=== PATIENT | female | born 1945 | race Caucasian/White ===

== ENCOUNTER 2016-06-10 20:28 | Inpatient (IN) ==
--- NOTE | 2016-06-10 20:50 | Emergency Department Note ---
Disposition Clinical Impression: Symptomatic anemia Disposition: Admitted As Inpatient Condition: Serious Referrals: Unassigned,Provider [Primary Care Provider] - Forms: ED Satisfaction Letter Time of Disposition: 21:49 SOB HPI - General Chief Complaint: ED Shortness of Breath/Dyspnea Stated Complaint: MICH/rectal bleeding Time Seen by Provider: 06/10/16 20:40 Source: patient Mode of arrival: ambulatory Limitations: no limitations Nursing Notes Reviewed: Yes Vital Signs Reviewed: Yes - History of Present Illness Patient is a 71-year-old female with hx of hypertension, diabetes, hyperlipidemia who presents today due to shortness of breath and anemia. Patient says that she has been short of breath for the past 6 weeks, denies any chest pain, denies any previous lung diagnosis such as COPD. Denies any wheezes. She is not following with her primary care doctor who recently did labs for occult blood in her stool and a CBC. She is called with results today and was told that she had a positive occult blood stool and had a hemoglobin that was critically low. Labs showed that patient has a hemoglobin of 4.7. Patient is very dyspneic on exam, very pale. Blood pressure within normal limits. She admits to some episodes of bright red blood in her stool. She had a colonoscopy within the past year that showed diverticulitis according to the patient. Currently denies any nausea, vomiting, fevers, abdominal pain. - Related Data Home Medications Medication Instructions Recorded Confirmed Acetaminophen [Tylenol] 500 mg PO Q6HR PRN 10/23/15 06/10/16 Chlorthalidone 25 mg PO DAILY 10/23/15 06/10/16 Citalopram Hydrobromide 40 mg PO DAILY 10/23/15 06/10/16 [Citalopram HBr] Cranberry Fruit Extract [Cranberry] 425 mg PO DAILY 10/23/15 06/10/16 Cyanocobalamin (Vitamin B-12) 1,000 mcg PO DAILY 10/23/15 06/10/16 [Vitamin B12] Insulin Glargine,Hum.rec.anlog 39 unit SQ HS 10/23/15 06/10/16 [Lantus Solostar] LORazepam [Ativan] 0.5 mg PO BID PRN 10/23/15 06/10/16 Nitroglycerin [Nitrostat] 0.4 mg SL AD PRN 10/23/15 06/10/16 Simvastatin [Zocor] 40 mg PO HS 10/23/15 06/10/16 Valsartan [Diovan] 160 mg PO DAILY 10/23/15 06/10/16 Calcitriol [Rocaltrol] 0.25 mcg PO DAILY 06/10/16 06/10/16 Omeprazole [PriLOSEC] 20 mg PO BID 06/10/16 06/10/16 Tramadol HCl [Ultram] 50 mg PO Q8H PRN 06/10/16 06/10/16 Allergies Allergy/AdvReac Type Severity Reaction Status Date / Time Sulfa (Sulfonamide Allergy Swelling Verified 10/23/15 11:35 Antibiotics) of Lip/Tongue/Throat codeine AdvReac Rash Verified 10/23/15 11:35 Penicillins [PCN] AdvReac Rash Verified 10/23/15 11:35 Constitutional: Denies: fever Cardiovascular: Reports: dyspnea on exertion. Denies: chest pain, palpitations Respiratory: Reports: dyspnea. Denies: cough, wheezes Gastrointestinal: Denies: abdominal pain, nausea, vomiting, diarrhea Genitourinary: Denies: urgency, dysuria Musculoskeletal: Denies: back pain Integumentary: Denies: rash Neurological: Reports: weakness (Generalized weakness). Denies: headache, numbness, paresthesias Past Medical History - Past Medical History Attestation: Yes The following information was validated with the patient. Source: patient Medical history: Reports: arthritis, diabetes, hyperlipidemia, hypertension, renal disease Surgical history: Reports: cataract, cholecystectomy, hysterectomy, orthopedic, other Psychiatric history: Reports: no psych history - Social History Smoking Status: Never smoker Smokeless Tobacco Status: No Alcohol use: Reports: none Drug use: Reports: none Physical Exam Patient very dyspneic and tachypneic on exam. Very pale. - General Limitations: no limitations General appearance: alert, in distress - Head Head exam: atraumatic, normocephalic, normal inspection - Eye Eye exam: Present: normal appearance, PERRL, EOMI - ENT ENT exam: normal exam, normal oropharynx, mucous membranes moist - Neck Neck exam: Present: normal inspection, full ROM, trachea midline - Chest Chest inspection: Present: normal inspection, symmetric chest wall rise - Respiratory Respiratory exam: Present: normal lung sounds bilaterally, other (tachypnic) - Cardiovascular Cardiovascular exam: Present: regular rate, normal rhythm, normal heart sounds - Abdominal Exam Abdominal exam: Present: soft, Non-Tender. Absent: tenderness, distention, guarding, rebound, rigidity - Extremities Exam Extremities exam: Present: normal inspection, full ROM. Absent: tenderness, pedal edema - Neurological Exam Neurological exam: Present: alert, oriented X3 - Psychiatric Psychiatric exam: Present: normal affect, normal mood - Skin Skin exam: Present: warm, dry, intact, pallor Course Course Narrative: Patient very dyspneic and tachypneic on exam. Very pale. BP WNL. Patient had a confirmed hemoglobin of 4.7. I ordered type and screen, 4 units of blood. Will obtain repeat H&H. WIll admit for anemia, GI bleed. 21:39 Repeat Hgb 4.7. Transfusion consent signed and on chart. Vital Signs Temperature 98.9 F 06/10/16 20:29 Pulse Rate 84 06/10/16 20:29 Respiratory Rate 32 06/10/16 20:29 Blood Pressure 132/72 06/10/16 20:29 O2 Sat by Pulse Oximetry 78 06/10/16 20:29 Temperature 98.9 F 06/10/16 20:29 Pulse Rate 68 06/10/16 21:05 Respiratory Rate 24 06/10/16 21:05 Blood Pressure 127/61 06/10/16 21:05 O2 Sat by Pulse Oximetry 100 06/10/16 21:05 Oxygen Delivery Oxygen Delivery Nasal Cannula Shortness of Breath/Dyspnea - MDM Narrative Medical decision making narrative: Patient very dyspneic and tachypneic on exam. Very pale. BP WNL. Patient had a confirmed hemoglobin of 4.7. I ordered type and screen, 4 units of blood. Will obtain repeat H&H. WIll admit for anemia, GI bleed. 21:39 Repeat Hgb 4.7. Transfusion consent signed and on chart. - Medical Records Medical records reviewed: Yes I reviewed the patient's medical records. - Lab Data Lab results reviewed: Yes I reviewed the patient's lab results. Result diagrams: 06/10/16 20:55 Lab Results 06/10/16 06/10/16 Range/Units 20:55 20:55 Hgb 4.7 L* (11.5-15.4) g/dL Hct 16.6 L (35.3-44.9) % Blood Type A POSITIVE Antibody Screen NEGATIVE Crossmatch See Detail - Radiology Data Radiology results reviewed: Yes I reviewed the patient's radiology results. - EKG Data EKG attestation: Yes I reviewed and interpreted this EKG. EKG results narrative: 06/10/2016 at 20:46. Rate 70. WV 135. QRS 86. QTc 4:30. Left axis deviation. T wave inversion in lead 3, V1 this is unchanged from the previous EKG on 09/23/2013. No other acute ST elevation or depression. S.B.Edilson. - Buster.Juan Luis Situation: Demographics, MOA Background: Presenting Complaint, Relevant PMH, Meds, & Allergies Assessment: Vital Signs, Course and respsone to treatment, Exam Concerns, Patient/Family Expectation, Pertinant Lab Results, Outstanding Labs Recommendation: Barrier(s) to disposition, Recommendation based on pending studies, treatments, or consults SMars Report Given to: Dr. Arturo Mccray Repor Time: 21:49 Attestation Statement - Attestation Attestation: I examined this patient and my medical decision-making was reviewed with the BOTTLE BLOWER/PA/Advanced Practice Nurse/Resident Physician. I agree with the documented findings, disposition and treatment plan as described except to the extent set forth below. Patient emergency department with rectal bleeding. Patient had been having bright red blood that returned a dark stools. She saw her PCP today and had a positive stool Hemoccult and a hemoglobin of 4. Sent in for transfusion and admission. Patient admits to dyspnea. On examination she is visibly dyspneic. Lungs clear. Abdomen soft. She appears pale with pale conjunctiva. Plan. Type and cross and transfuse. Protonix. Patient will be admitted. Patient admitted to medicine. Repeat hemoglobin 4.7. Patient is a type and cross for 4 units and will begin transfusion. 35 minutes of critical care time exclusive of separately billable procedures.
[2016-06-10] MEDS ORDERED: Pantoprazole 40 MG VIAL IVP ONE (21:05)
[2016-06-10 21:08] LABS: Hematocrit 16.6 % (35.3-44.9)
[2016-06-10 21:10] LABS: Hemoglobin 4.7 g/dL (11.5-15.4)
[2016-06-10] MEDS ORDERED: 0.9 % Sodium Chloride 250 ML IVC ONE (22:27)
--- NOTE | 2016-06-10 23:35 | Internal Med History&Physical ---
Date of Encounter: 06/10/16 Time of Encounter: 23:34 Assessment and Plan (1) Upper GI bleed Current visit: Yes Status: Suspected Suspect upper GI bleed - patient denies history of NSAID use or aspirin or anticoagulants. She has a prior history of H. pylori infection - suspect peptic ulcer disease/gastritis. Also she has history of dysphagia, suspect esophagitis / esophageal lesions. Patient is started on a PPI. SUrgical / GI consult for EGD. She apparently had colonoscopy in October 2015. (2) Severe anemia Current visit: Yes Status: Acute Likely due to GI / Upper GI bleed. PRBC transfusion 4 units, with Lasix cover. Monitor H&H. (3) Diabetes mellitus Current visit: Yes Status: Acute Start sliding scale insulin. 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 Pacheco is a 71 year old female with h/o hypertension, diabetes, CKD, prior h/ o H.pylori infection / PUD, EGD and colonoscopy in October 2015 apparently showed polyps. She was sent to the emergency department by her primary care physician for hemoglobin of 4.7 and positive fecal occult blood. She reports intermittent history of black stools for about 6 weeks. She denies bright red blood or dark blood in the stool. Occasional epigastric/lower abdominal pain. She denies hematemesis / coffee ground emesis. She reports difficulty swallowing solids sometimes, and feels like food is stuck in the chest for a few months - reports that she had difficulty swallowing turkey sandwich once, but denies difficulty swallowing water. She reports some loss of appetite but no loss of weight. She reports exertional shortness of breath for about 6 weeks which is worsening and has shortness of breath while talking. She denies orthopnea. She has some dry cough but no significant sputum production. She denies fever, chills, palpitations, dysuria, hematuria. She apparently had a few falls risk for accidental. Denies orthostatic hypotension/ syncope. She was evaluated in the emergency department and started on PRBC transfusion. She is admitted to the hospitalist service for further management. Her lab work showed a hemoglobin of 4.7, hematocrit 16.6%, MCV 83.8, platelets 229, INR 1.1, serum sodium 139, potassium 4.1, BUN 27, creatinine 1.64, serum iron 13, iron saturation 3%, transferrin 330, ferritin 8, AST 22, ALT 13. Past Med Surg Social Fam HX - Past Medical History Medical history: arthritis, diabetes, hyperlipidemia, hypertension, renal disease Psychiatric history: no psych history - Past Surgical History Surgical History: cataract, cholecystectomy, hysterectomy, orthopedic, other - Social History Smoking Status: Never smoker Smokeless Tobacco Status: No Alcohol use: none Drug use: none - Family History Son Adopted: [place]: ANNIA Age: 50 Family Member Ethnicity: Non- Living Status: Age at : 50 Cause of : CVA Hx Family Cardiac Disorders: Yes Hx Family Respiratory Disorders: Yes Hx Family Cancer: Yes (PT. HAD SKIN CA REMOVED RECENTLY) Hx Family GI Disorders: No Hx Family Genitourinary Disorders: Yes Hx Family Endocrine Disorder: Yes Hx Family Musculoskeletal Disorders: No Hx Family Neuromuscular Disorders: No Hx Family Neurologic Disorders: Yes Hx Family HEENT Disorders: No Hx Family Autoimmune Disorders: No Hx Family Reproductive Disorders: No Hx Family Psychosocial Disorders: Yes Hx Family Medical Disorders: Yes Internal Medicine - H&P: Meds Acetaminophen [Tylenol] 500 mg PO Q6HR PRN 10/23/15 [History] Chlorthalidone 25 mg PO DAILY 10/23/15 [History] Citalopram Hydrobromide [Citalopram HBr] 40 mg PO DAILY 10/23/15 [History] Cranberry Fruit Extract [Cranberry] 425 mg PO DAILY 10/23/15 [History] Cyanocobalamin (Vitamin B-12) [Vitamin B12] 1,000 mcg PO DAILY 10/23/15 [History ] Insulin Glargine,Hum.rec.anlog [Lantus Solostar] 39 unit SQ HS 10/23/15 [History ] LORazepam [Ativan] 0.5 mg PO BID PRN 10/23/15 [History] Nitroglycerin [Nitrostat] 0.4 mg SL AD PRN 10/23/15 [History] Simvastatin [Zocor] 40 mg PO HS 10/23/15 [History] Valsartan [Diovan] 160 mg PO DAILY 10/23/15 [History] Calcitriol [Rocaltrol] 0.25 mcg PO DAILY 06/10/16 [History] Omeprazole [PriLOSEC] 20 mg PO BID 06/10/16 [History] Tramadol HCl [Ultram] 50 mg PO Q8H PRN 06/10/16 [History] Allergies Sulfa (Sulfonamide Antibiotics) Allergy (Verified 10/23/15 11:35) Swelling of Lip/Tongue/Throat codeine Adverse Reaction (Verified 10/23/15 11:35) Rash Penicillins [PCN] Adverse Reaction (Verified 10/23/15 11:35) Rash All Systems PM: A 10-system review of systems was performed and is negative for pertinent findings except as documented above in the HPI. - Constitutional Vitals: Temp Pulse Resp BP Pulse Ox 98.3 F 65 18 142/47 100 06/10/16 23:03 06/10/16 23:03 06/10/16 23:03 06/10/16 23:03 06/10/16 23:03 Exam: General: Not in acute distress at the time of my evaluation HEENT: Oral mucosa is moist. conjunctival palor present. No scleral icterus Neck: No obvious neck swellings Lungs: Few basal crackles present Cardiac: Regular rate and rhythm. systolic murmur present Abdomen: Mild epigastric tenderness present. Bowel sounds present Neurological: Alert and oriented. No gross localizing deficits Psych: Not aggressive or agitated Extremities: B/L leg edema Skin: No generalized rash Internal Med - H&P Results - Labs CBC & Chem 7: 06/10/16 20:55 - EKG Data -: EKG Interpreted by Myself EKG shows normal: sinus rhythm - EKG Data EKG comments: T wave inversion in lead 3 06/11/16 03:52
[2016-06-11] MEDS ORDERED: Naloxone 0.4 MG/ML INJ IVP PRN (02:04)
[2016-06-11] MEDS ORDERED: Furosemide 20 MG/2 ML VIAL IVP ONE ×2 (02:11→08:51)
[2016-06-11] MEDS ORDERED: Nitroglycerin 0.4 MG TAB.SUBL SL PRN (02:13)
[2016-06-11] MEDS ORDERED: *HR* LORazepam 0.5 MG TABLET PO PRN (02:13)
[2016-06-11] MEDS ORDERED: D5% in Water 1,000 ML IVC PRN (02:14)
[2016-06-11] MEDS ORDERED: *HR* Dextrose 50 % in Water (Syg) 50 ML SYRINGE IVP PRN (02:14)
[2016-06-11] MEDS ORDERED: Dextrose Gel 15 GM PO PRN ×2 (02:14)
[2016-06-11] MEDS: Pantoprazole 40 MG VIAL IVP SCH ×2 (04:30→17:41)
[2016-06-11 05:31] LABS: Calcium 8.8 mg/dL (8.6-10.8); Magnesium 2.1 mg/dL (1.6-2.6); Potassium 3.8 mEq/L (3.5-4.5)
[2016-06-11 05:33] LABS: Eosinophils # 0.1 K/mcL (0.0-0.6); Eosinophils % 1.7 %; Hematocrit 18.6 % (35.3-44.9); Immature Granulocytes % 0.4 % (0-4); Lymphocytes # 1.4 K/mcL (0.6-4.6); Lymphocytes % 26.4 %; Mean Corpuscular Hemoglobin 24.3 pg (28.0-33.3); Mean Corpuscular Volume 83.8 fL (83.0-100.0); Mean Platelet Volume 11.1 fL (9.4-12.4); Monocytes # 0.4 K/mcL (0.0-1.3); Monocytes % 7.7 %; Neutrophils # 3.3 K/mcL (1.6-8.9); Platelet Count 210 K/mcL (140-400); Red Blood Count 2.22 M/mcL (3.82-4.97); Red Cell Distribution Width 16.3 % (11.5-14.5); Segmented Neutrophils % 63.8 %
[2016-06-11 06:53] LABS: Hemoglobin 5.4 g/dL (11.5-15.4)
[2016-06-11 07:06] LABS: Anisocytosis 1+ (Not Present); Hypochromasia Present (Not Present); Platelet Estimate Normal (Normal)
[2016-06-11] MEDS: Cyanocobalamin (B-12) 1,000 MCG TABLET PO SCH (07:53)
[2016-06-11] MEDS: Valsartan 160 MG TABLET PO SCH (07:53)
[2016-06-11] MEDS: Acetaminophen 325 MG TABLET PO PRN ×2 (07:56→20:22)
[2016-06-11] MEDS: Insulin LISPRO 300 UNITS/3 ML VIAL SQ SCH ×3 (07:58→17:01)
--- NOTE | 2016-06-11 08:48 | Internal Med Progress Note ---
Date of Encounter: 06/11/16 Time of Encounter: 08:47 - Assessment and plan (1) Symptomatic anemia Current Visit: Yes Status: Acute Assessment and plan: Patient presented with extreme fatigue and generalized weakness, routine labs by PCP revealed significant anemia and referred to emergency room. Initial hemoglobin in the emergency room noted to be 4.7, received 2 units PRBC so far along with IV Lasix and hemoglobin this morning is 5.4. We will transfuse 2 more units PRBC along with IV Lasix and consult surgery for possible EGD. Continue to monitor hemoglobin every 6 hours. Keep nothing by mouth for now. (2) Upper GI bleed Current Visit: Yes Status: Suspected Assessment and plan: Patient presents with anemia and intermittent melena. Continue to transfuse to keep hemoglobin above 8. Surgery consult for possible EGD. Patient has history of H. pylori gastritis, treated in the past. Keep nothing by mouth for now with IV hydration. Monitor hemoglobin every 6 hours. (3) CKD (chronic kidney disease) Current Visit: Yes Status: Chronic Assessment and plan: Serum creatinine noted to be slightly elevated from baseline, at 1.7 (baseline creatinine around 1.2). This is likely due to acute anemia and blood loss. Continue to treat underlying condition and monitor serum creatinine closely. Avoid nephrotoxic agents. Qualifiers: Chronic kidney disease stage: stage 3 (moderate) Qualified Code(s): N18.3 - Chronic kidney disease, stage 3 (moderate) (4) Diabetes mellitus Current Visit: Yes Status: Chronic Assessment and plan: Accu-Chek blood glucose monitoring with sliding scale insulin. Currently nothing by mouth Will start diabetic diet when indicated. 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 [facility] use Chronic kidney disease stage: stage 3 (moderate) Qualified Code(s): E11.22 - Type 2 diabetes mellitus with diabetic chronic kidney disease; N18.3 - Chronic kidney disease, stage 3 (moderate); Z79.4 - long-term (current) use of insulin (5) Hypertension Current Visit: Yes Status: Chronic Qualifiers: Hypertension type: essential hypertension Qualified Code(s): I10 - Essential (primary) hypertension - Subjective Interval history: Feels better but still tired and fatigued; no chest pain or shortness of breath ; received 2units PRBC overnight; - Constitutional Vitals: Temp Pulse Resp BP Pulse Ox 98.7 F 65 18 122/54 99 06/11/16 08:08 06/11/16 08:08 06/11/16 08:08 06/11/16 08:08 06/11/16 08:08 General appearance: Present: A&O X 3, answers questions appropriately - Respiratory Respiratory exam: Present: CTAB. Absent: accessory muscle use, rales, rhonchi, wheezes - Cardiovascular Cardiovascular exam: Present: RRR, +S1, +S2, systolic murmur. Absent: diastolic murmur, gallop, rubs - GI/Abdominal GI/Abdominal exam: Present: normal bowel sounds, soft, no peritoneal signs. Absent: distended, tenderness - Extremities Exam Extremities exam: Present: full ROM, warm, radial pulses palpable and symetrical. Absent: calf tenderness, cyanotic, pedal edema - Neurological Exam Neurological exam: Present: CN II-XII intact, oriented X3, no focal deficits. Absent: pronater drift, facial droop, speech deficit - Skin Skin exam: Present: dry, intact, pallor Internal Medicine: Result - Labs CBC & Chem 7: 06/11/16 12:53 06/11/16 03:49 Labs: Short CBC 06/11/16 Range/Units 03:49 WBC 5.2 (4.3-11.1) K/mcL Hgb 5.4 L* (11.5-15.4) g/dL Hct 18.6 L (35.3-44.9) % Plt Count 210 (140-400) K/mcL Neutrophils # 3.3 (1.6-8.9) K/mcL BMP 06/11/16 03:49 Sodium 139 Potassium 3.8 Chloride 105 Carbon Dioxide 24 BUN 28 H Creatinine 1.72 H Glucose 133 H Calcium 8.8 - Impressions Impressions Chest X-Ray 06/11/16 03:52 IMPRESSION: Normal chest x-ray D/ / Oswald Ward MD / Oswald Ward MD Interpreting Provider: Oswald Ward MD Consult Discharge Plan - Plan Referrals: Alyssa Robb, [facility] [facility]ELDER [Primary Care Provider] -
[2016-06-11] MEDS ORDERED: 0.9 % Sodium Chloride 250 ML ONE (09:05)
--- NOTE | 2016-06-11 09:54 | General Surgery Consult Note ---
Date of Encounter: 06/11/16 Time of Encounter: 09:30 Assessment and Plan (1) Upper GI bleed Current Visit: Yes Status: Suspected The patient is likely experiencing acute upper GI hemorrhage. We will plan urgent upper endoscopy for diagnostic and possibly therapeutic measures. History of Present Illness Consult date: 06/11/16 Reason for consult: other (Upper GI bleeding) History of present illness: The patient presented through the emergency room with melena area she was found to have a hemoglobin of 4 on admission. She is finishing her fourth unit of blood transfusion. Upper endoscopy is recommended for probable upper gastrointestinal hemorrhage. She has had melena for at least several weeks. She was not sure why this was significant. She became progressively more lethargic and weak and finally sought evaluation in the emergency room. She denies hematemesis she has not previously had gastric surgery. She has had cholecystectomy and hysterectomy. She now presents for urgent upper endoscopy for diagnostic and possibly therapeutic measures. Past Med Surg Social Fam HX - Past Medical History Medical history: arthritis, diabetes, hyperlipidemia, hypertension, renal disease Psychiatric history: no psych history - Past Surgical History Surgical History: cataract, cholecystectomy, hysterectomy, orthopedic, other - Social History Smoking Status: Never smoker Smokeless Tobacco Status: No Alcohol use: none Drug use: none - Family History Son Adopted: [place]: ANNIA Age: 50 Family Member Ethnicity: Non- Living Status: Age at : 50 Cause of : CVA Hx Family Cardiac Disorders: Yes Hx Family Respiratory Disorders: Yes Hx Family Cancer: Yes (PT. HAD SKIN CA REMOVED RECENTLY) Hx Family GI Disorders: No Hx Family Genitourinary Disorders: Yes Hx Family Endocrine Disorder: Yes Hx Family Musculoskeletal Disorders: No Hx Family Neuromuscular Disorders: No Hx Family Neurologic Disorders: Yes Hx Family HEENT Disorders: No Hx Family Autoimmune Disorders: No Hx Family Reproductive Disorders: No Hx Family Psychosocial Disorders: Yes Hx Family Medical Disorders: Yes Medications and Allergies Acetaminophen [Tylenol] 500 mg PO Q6HR PRN 10/23/15 [History] Chlorthalidone 25 mg PO DAILY 10/23/15 [History] Citalopram Hydrobromide [Citalopram HBr] 40 mg PO DAILY 10/23/15 [History] Cranberry Fruit Extract [Cranberry] 425 mg PO DAILY 10/23/15 [History] Cyanocobalamin (Vitamin B-12) [Vitamin B12] 1,000 mcg PO DAILY 10/23/15 [History ] Insulin Glargine,Hum.rec.anlog [Lantus Solostar] 39 unit SQ HS 10/23/15 [History ] LORazepam [Ativan] 0.5 mg PO BID PRN 10/23/15 [History] Nitroglycerin [Nitrostat] 0.4 mg SL AD PRN 10/23/15 [History] Simvastatin [Zocor] 40 mg PO HS 10/23/15 [History] Valsartan [Diovan] 160 mg PO DAILY 10/23/15 [History] Calcitriol [Rocaltrol] 0.25 mcg PO DAILY 06/10/16 [History] Omeprazole [PriLOSEC] 20 mg PO BID 06/10/16 [History] Tramadol HCl [Ultram] 50 mg PO Q8H PRN 06/10/16 [History] Allergies Sulfa (Sulfonamide Antibiotics) Allergy (Verified 10/23/15 11:35) Swelling of Lip/Tongue/Throat codeine Adverse Reaction (Verified 10/23/15 11:35) Rash Penicillins [PCN] Adverse Reaction (Verified 10/23/15 11:35) Rash Review of Systems All systems PM: A 10-system review of systems was performed and is negative for pertinent findings except as documented above in the HPI. General Surgery Exam Initial Vital Signs Temp Pulse Resp BP Pulse Ox 98.9 F 84 32 132/72 78 06/10/16 20:29 06/10/16 20:29 06/10/16 20:29 06/10/16 20:29 06/10/16 20:29 - General physical appearance well developed, well nourished, no distress - Respiratory normal expansion, normal respiratory effort, clear to percussion, clear to auscultation - Cardiovascular Cardiovascular exam: Present: RRR, 15, 16 - Abdomen Abdomen general surgery: Present: bowel sounds present, soft, non tender - Integumentary Integumentary general surgery: Present: other (Pale) - Neurologic Present: CN 2-12 grossly intact, normal coordination, normal sensation - Psychiatric Psychiatric general surgery: Present: appropriate, oriented to person, oriented to place, oriented to time, speech is normal, memory intact Exam Initial Vital Signs Temp Pulse Resp BP Pulse Ox 98.9 F 84 32 132/72 78 06/10/16 20:29 04/21/17 20:29 06/10/16 20:29 06/10/16 20:29 06/10/16 20:29 Results - Labs 06/11/16 03:49 06/11/16 03:49 Abnormal lab results RBC 2.22 M/mcL (3.82-4.97) L 06/11/16 03:49 Hgb 5.4 g/dL (11.5-15.4) L* 06/11/16 03:49 Hct 18.6 % (35.3-44.9) L 06/11/16 03:49 MCH 24.3 pg (28.0-33.3) L 06/11/16 03:49 MCHC 29.0 g/dL (31.6-35.5) L 06/11/16 03:49 RDW 16.3 % (11.5-14.5) H 06/11/16 03:49 Hypochromasia Present (Not Present) A 06/11/16 03:49 Anisocytosis 1+ (Not Present) A 06/11/16 03:49 BUN 28 mg/dL (7-20) H 06/11/16 03:49 Creatinine 1.72 mg/dL (0.57-1.11) H 06/11/16 03:49 Est GFR ( Amer) 35 (> 60) L 06/11/16 03:49 Est GFR (Non-Af Amer) 29 (> 60) L 06/11/16 03:49 Glucose 133 mg/dL (70-99) H 06/11/16 03:49 POC Glucose 159 (58-89) H 06/11/16 07:17 Diabetes panel 06/11/16 Range/Units 03:49 Sodium 139 (136-145) mEq/L Potassium 3.8 (3.5-4.5) mEq/L Chloride 105 (98-109) mEq/L Carbon Dioxide 24 (19-29) mEq/L BUN 28 H (7-20) mg/dL Creatinine 1.72 H (0.57-1.11) mg/dL Glucose 133 H (70-99) mg/dL Calcium 8.8 (8.6-10.8) mg/dL Calcium panel 06/11/16 Range/Units 03:49 Calcium 8.8 (8.6-10.8) mg/dL Pituitary panel 06/11/16 Range/Units 03:49 Sodium 139 (136-145) mEq/L Potassium 3.8 (3.5-4.5) mEq/L Chloride 105 (98-109) mEq/L Carbon Dioxide 24 (19-29) mEq/L BUN 28 H (7-20) mg/dL Creatinine 1.72 H (0.57-1.11) mg/dL Glucose 133 H (70-99) mg/dL Calcium 8.8 (8.6-10.8) mg/dL Adrenal panel 06/11/16 Range/Units 03:49 Sodium 139 (136-145) mEq/L Potassium 3.8 (3.5-4.5) mEq/L Chloride 105 (98-109) mEq/L Carbon Dioxide 24 (19-29) mEq/L BUN 28 H (7-20) mg/dL Creatinine 1.72 H (0.57-1.11) mg/dL Glucose 133 H (70-99) mg/dL Calcium 8.8 (8.6-10.8) mg/dL All other labs normal. Consult Discharge Plan - Plan Referrals: Alyssa Robb, GEOGRAPHY INSTRUCTOR [Primary Care Provider] -
[2016-06-11] MEDS ORDERED: *HR* Midazolam HCl 5 MG/5 ML VIAL IVP ONE (10:38)
[2016-06-11] MEDS ORDERED: *HR* FentaNYL (PF) 100 MCG/2 ML VIAL ONE (10:38)
[2016-06-11] MEDS ORDERED: Simethicone 40 MG/0.6 ML MLS IR ONE (10:39)
[2016-06-11] MEDS ORDERED: *HR* FentaNYL (PF) 100 MCG/2 ML VIAL IVP PRN (10:39)
[2016-06-11] MEDS ORDERED: *HR* Midazolam HCl 5 MG/5 ML VIAL IVP PRN (10:39)
[2016-06-11] MEDS ORDERED: Tetracaine/Benzocaine/Butamben 200MG/SPRAY (100SPY/BOT) MM ONE (10:39)
--- NOTE | 2016-06-11 10:41 | Pre-Sedation Evaluation ---
Pre-sedation evaluation - Pre-sedation checklist Date of procedure: 06/11/16 Procedure: EGD Recent Vitals: Last Vital Signs Temp 98.9 F 06/11/16 10:38 Pulse 62 06/11/16 10:38 Resp 18 06/11/16 10:38 BP 157/58 06/11/16 10:38 Pulse Ox 97 06/11/16 10:38 H&P (including ROS) documented in medical record: Yes Previous reaction to sedatives/anesthetics: No Dietary Status: NPO after Midnight Airway Assessment: Patient can open mouth completely, TMJ function normal Dentition: No loose teeth or bridges Possible difficult airway: Yes If Yes;: Morbid obesity ASA Classification *see protocol: CLASS III-Severe systemic disease Plan of Care: Pt appropriate candidate for procedure/moderate/conscious sedation , Risks/benefits of procedure/sedation discussed w/ patient/family
[2016-06-11] MEDS ORDERED: 0.9 % Sodium Chloride 500 ML IVC SCH (11:15)
[2016-06-11 12:59] LABS: Hematocrit 28.5 % (35.3-44.9)
[2016-06-11 19:07] LABS: Hemoglobin 9.2 g/dL (11.5-15.4)
[2016-06-11] MEDS: traMADol 50 MG TABLET PO PRN (20:23)
[2016-06-11] MEDS ORDERED: Insulin LISPRO 300 UNITS/3 ML VIAL SQ SCH (21:00)
[2016-06-11 21:31] LABS: Hematocrit 28.1 % (35.3-44.9); Hemoglobin 9.1 g/dL (11.5-15.4)
[2016-06-12 05:01] LABS: Basophils % 0.3 %; Eosinophils # 0.2 K/mcL (0.0-0.6); Eosinophils % 2.8 %; Hematocrit 28.6 % (35.3-44.9); Hemoglobin 9.1 g/dL (11.5-15.4); Immature Granulocytes % 0.3 % (0-4); Lymphocytes # 1.5 K/mcL (0.6-4.6); Lymphocytes % 23.1 %; Mean Corpuscular HGB Conc 31.8 g/dL (31.6-35.5); Mean Corpuscular Hemoglobin 26.8 pg (28.0-33.3); Mean Corpuscular Volume 84.4 fL (83.0-100.0); Mean Platelet Volume 10.6 fL (9.4-12.4); Monocytes # 0.5 K/mcL (0.0-1.3); Monocytes % 7.9 %; Neutrophils # 4.2 K/mcL (1.6-8.9); Platelet Count 198 K/mcL (140-400); Red Blood Count 3.39 M/mcL (3.82-4.97); Red Cell Distribution Width 15.3 % (11.5-14.5); Segmented Neutrophils % 65.6 %
[2016-06-12 05:13] LABS: Calcium 9.6 mg/dL (8.6-10.8); Potassium 3.9 mEq/L (3.5-4.5)
[2016-06-12] MEDS: Pantoprazole 40 MG VIAL IVP SCH (06:43)
[2016-06-12] MEDS: traMADol 50 MG TABLET PO PRN (06:43)
[2016-06-12] MEDS: Cyanocobalamin (B-12) 1,000 MCG TABLET PO SCH (08:47)
[2016-06-12] MEDS: Insulin LISPRO 300 UNITS/3 ML VIAL SQ SCH ×2 (08:47→12:55)
[2016-06-12] MEDS: Valsartan 160 MG TABLET PO SCH (08:47)
[2016-06-12 11:17] VITALS: BP 119/46
--- NOTE | 2016-06-12 11:22 | General Surgery Progress Note ---
Date of Encounter: 06/12/16 Time of Encounter: 10:00 - Assessment and Plan (1) Upper GI bleed Current Visit: Yes Status: Suspected The patient is likely experiencing acute upper GI hemorrhage. We will plan urgent upper endoscopy for diagnostic and possibly therapeutic measures. 06/12/2016 Stable of coagulation of bleeding sites in the stomach. Hgb stable at 9.1 Will sign off Subjective Narrative: No pain or melena. Hgb stable at 9.1. will sign off Objective Vital Signs - Last 8 Hours Temp Pulse Resp BP Pulse Ox 06/12/16 11:12 98.2 F 55 18 119/46 97 06/12/16 09:01 69 06/12/16 07:22 98.0 F 79 18 138/59 97 06/12/16 04:06 55 Intake and Output 06/11/16 06/12/16 06/12/16 23:59 07:59 15:59 Intake Total 240 / 240 357 / 357 Output Total 800 / 800 200 / 200 200 / 200 Balance -560 / -560 -200 / -200 157 / 157 Intake: Oral 240 / 240 357 / 357 Output: Urine 800 / 800 200 / 200 200 / 200 Other: Meal Dinner Breakfast Percent of Meal Consumed 50% 50% Weight 100.5 kg Blood Glucose* 146 147 126 Patient Weight 06/12/16 23:59 Weight 100.5 kg - General physical appearance obese - Respiratory normal expansion, normal respiratory effort, clear to percussion, clear to auscultation - Cardiovascular Cardiovascular exam: Present: RRR, no murmurs/rubs/gallops - Abdomen Abdomen: Present: bowel sounds present, soft, non tender - Psychiatric oriented to time, oriented to person, oriented to place, speech is normal, memory intact - Labs 06/12/16 04:42 06/12/16 04:42 Diabetes panel 06/12/16 Range/Units 04:42 Sodium 139 (136-145) mEq/L Potassium 3.9 (3.5-4.5) mEq/L Chloride 104 (98-109) mEq/L Carbon Dioxide 24 (19-29) mEq/L BUN 28 H (7-20) mg/dL Creatinine 1.77 H (0.57-1.11) mg/dL Glucose 125 H (70-99) mg/dL Calcium 9.6 (8.6-10.8) mg/dL Calcium panel 06/12/16 Range/Units 04:42 Calcium 9.6 (8.6-10.8) mg/dL Pituitary panel 06/12/16 Range/Units 04:42 Sodium 139 (136-145) mEq/L Potassium 3.9 (3.5-4.5) mEq/L Chloride 104 (98-109) mEq/L Carbon Dioxide 24 (19-29) mEq/L BUN 28 H (7-20) mg/dL Creatinine 1.77 H (0.57-1.11) mg/dL Glucose 125 H (70-99) mg/dL Calcium 9.6 (8.6-10.8) mg/dL Adrenal panel 06/12/16 Range/Units 04:42 Sodium 139 (136-145) mEq/L Potassium 3.9 (3.5-4.5) mEq/L Chloride 104 (98-109) mEq/L Carbon Dioxide 24 (19-29) mEq/L BUN 28 H (7-20) mg/dL Creatinine 1.77 H (0.57-1.11) mg/dL Glucose 125 H (70-99) mg/dL Calcium 9.6 (8.6-10.8) mg/dL - VTE Documentation of Mechanical Device: Intermittent pneumatic compression device Consult Discharge Plan - Plan Referrals: Alyssa Robb, ANITRA [Primary Care Provider] -
--- NOTE | 2016-06-12 12:15 | Discharge Summary ---
Date of Encounter: 06/12/16 Time of Encounter: 10:30 - Discharge Diagnosis (1) Angiectasia Priority: Primary Status: Chronic (2) Symptomatic anemia Priority: Primary Status: Acute (3) Upper GI bleed Priority: Primary Status: Suspected (4) CKD (chronic kidney disease) Priority: Secondary Status: Chronic Qualifiers: Chronic kidney disease stage: stage 3 (moderate) Qualified Code(s): N18.3 - Chronic kidney disease, stage 3 (moderate) (5) Diabetes mellitus Priority: Secondary Status: Chronic Qualifiers: Diabetes mellitus type: type 2 Diabetes mellitus complication status: with kidney complications Diabetes mellitus complication detail: with chronic kidney disease 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: with 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 use Chronic kidney disease stage: stage 3 (moderate) Qualified Code(s): E11.22 - Type 2 diabetes mellitus with diabetic chronic kidney disease; N18.3 - Chronic kidney disease, stage 3 (moderate); 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 (6) Hypertension Priority: Secondary Status: Chronic Qualifiers: Hypertension type: essential hypertension Qualified Code(s): I10 - Essential (primary) hypertension - Discharge Medications Home Medications: Acetaminophen [Tylenol] 500 mg PO Q6HR PRN 10/23/15 [History] Chlorthalidone 25 mg PO DAILY 10/23/15 [History] Citalopram Hydrobromide [Citalopram HBr] 40 mg PO DAILY 10/23/15 [History] Cranberry Fruit Extract [Cranberry] 425 mg PO DAILY 10/23/15 [History] Cyanocobalamin (Vitamin B-12) [Vitamin B12] 1,000 mcg PO DAILY 10/23/15 [History ] Insulin Glargine,Hum.rec.anlog [Lantus Solostar] 39 unit SQ HS 10/23/15 [History ] LORazepam [Ativan] 0.5 mg PO BID PRN 10/23/15 [History] Nitroglycerin [Nitrostat] 0.4 mg SL AD PRN 10/23/15 [History] Simvastatin [Zocor] 40 mg PO HS 10/23/15 [History] Valsartan [Diovan] 160 mg PO DAILY 10/23/15 [History] Calcitriol [Rocaltrol] 0.25 mcg PO DAILY 06/10/16 [History] Tramadol HCl [Ultram] 50 mg PO Q8H PRN 06/10/16 [History] Omeprazole [PriLOSEC] 40 mg PO BID #30 06/12/16 [Rx] Allergies/Adverse Reactions: Allergies Sulfa (Sulfonamide Antibiotics) Allergy (Verified 10/23/15 11:35) Swelling of Lip/Tongue/Throat codeine Adverse Reaction (Verified 10/23/15 11:35) Rash Penicillins [PCN] Adverse Reaction (Verified 10/23/15 11:35) Rash Procedures/tests Complete & Pending: Procedures Performed prior 72 hours Category Date Time Status ECG 12 lead ECG [ECG] Routine Y 06/10/16 20:46 Completed Date of admission: 06/10/16 22:16 Primary care physician: Alyssa Robb CNP Consults: 06/11/16 08:54 Consult to Surgery [CONS] Routine Consulting Provider: Surgery [facility] Reason for Consult: Melena, UGI bleed, anemia Call Completed: Yes Discharging clinician: Marcia Sepulveda Anticipated date of discharge: 06/12/16 - Patient Status Disposition: Home, Self-Care Condition: Fair Functional capacity at discharge: independent ambulation Overall status at discharge: patient is progressing back to baseline - Discharge Instructions Instructions: Diet for Ulcers and Gastritis (GEN), Anemia (GEN) Follow Up With: Alyssa Robb CNP [Primary Care Provider] - 06/17/16 1:00 pm ( ) Additional Instructions: DIABETIC, LOW FAT, LOW CHOLESTEROL, LOW SALT DIET. BLAND DIET IS RECOMMENDED. AVOID ASPIRIN AND NSAIDS. 06-12-16 HGB 9.1 - Diet and Activity Activity: resume usual activities as tolerated Diet: diabetic diet, low fat, low cholesterol, low salt diet, other (bland diet , avoid ASA/NSAIDs) Hospital course: Ms. Pacheco is a 71 year old female who was admitted with symptomatic anemia. She was noted to have hemoglobin of 4.7 in the emergency room and subsequently received 4 units of PRBC with improvement to 9.1. She reported episodes of melena and stool occult blood test was positive. Surgery was consulted and patient underwent EGD which revealed multiple 1 mm bleeding angiectasia is in the gastric antrum, which have been treated with argon photocoagulation with appropriate bleeding controlled. Patient's hemoglobin remained stable since the procedure. She received IVP PA's while in the hospital and she is currently medically stable for discharge on twice-daily oral PPI and outpatient follow-up. She is able to tolerate oral diet and is explained about the importance of avoiding aspirin/NSAIDs/anticoagulants and to follow bland diet. - Time Spent with Patient Total time spent providing and/or coordinating discharge services: Greater than 30 minutes (45 min) - Constitutional Vitals: Temp Pulse Resp BP Pulse Ox 98.2 F 55 18 119/46 97 06/12/16 11:12 06/12/16 11:12 06/12/16 11:12 06/12/16 11:12 06/12/16 11:12 General appearance: Present: A&O X 3, answers questions appropriately - Respiratory Respiratory exam: Present: CTAB. Absent: accessory muscle use, rales, rhonchi, wheezes - Cardiovascular Cardiovascular exam: Present: RRR, +S1, +S2. Absent: diastolic murmur, gallop, rubs, systolic murmur - VTE Documentation of Mechanical Device: Intermittent pneumatic compression device
--- NOTE | 2016-06-12 20:09 | Electrocardiograph Report ---
[address] [address] Test Date: 2016-06-10 Pat Name: Blanca Pacheco Department: 102 Room: 2N01 Gender: F Echocardiologist: Yang : 1945 Requested By: aKity Sepulveda Order Number: [id number] Reading MD: Yosvany Ortiz MD Measurements Intervals [place] Rate: 70 P: 38 NM: 135 QRS: -11 QRSD: 86 T: 17 QT: 408 QTc: 430 Interpretive Statements SINUS RHYTHM LOW QRS VOLTAGE IN PRECORDIAL LEADS Poor R wave progression Electronically Signed On 06-12-2016 20:07:21 EDT by Yosvany Ortiz MD
== END 2016-06-12 16:11 | disposition home or self-care (01) | DRG 378 ==
LOC: EMEROO 20:28 → 2NNU 22:16
PROVIDERS: ADMIT Internal Medicine; ATTEND Internal Medicine
PROC: ENDOEBX (2016-06-11 11:00)

== ENCOUNTER 2017-01-30 10:39 | Inpatient (IN) ==
[2017-01-30] MEDS ORDERED: 0.9 % Sodium Chloride 1,000 ML IVC ONE ×2 (10:54→12:19)
--- NOTE | 2017-01-30 11:11 | Emergency Department Note ---
Disposition Clinical Impression: Severe anemia, Shortness of breath, Pallor Disposition: Admitted As Inpatient General Adult HPI - General Chief complaint: ED Recheck/Abnormal Lab/Rx Stated complaint: LOW HEMOGLOBIN Time Seen by Provider: 01/30/17 10:48 Source: patient, family Nursing Notes Reviewed: Yes Vital Signs Reviewed: Yes - History of Present Illness HPI Narrative: 71-year-old female complains of shortness of breath for the past week secondary to anemia. Patient was called by her PCP today and told to come to the ED for a hemoglobin of 6.1. Patient has a history of GI bleed and received laser surgery to patient received a transfusion at that time. Patient also complains of abdominal pain has worsened from her chronic abdominal pain. Patient states her pain is 7/10 sharp and intermittent. Usually rubbing her belly except better. Patient states she has been having dark stools but is on iron supplementation. Patient has history of diabetes, kidney disease, hypertension, hyperlipidemia, Patient's surgical history for cholecystectomy, appendectomy, hysterectomy. Onset (ago): day(s) Radiation: non-radiation Pain Scale: 8 Consistency: constant Improves with: nothing Worsens with: other (exertion) Associated symptoms: Denies: chest pain, cough Treatments Prior to Arrival: none - Related Data Home Medications Medication Instructions Recorded Confirmed Acetaminophen [Tylenol] 500 mg PO Q6HR PRN 10/23/15 01/30/17 Chlorthalidone 25 mg PO DAILY 10/23/15 01/30/17 Citalopram Hydrobromide 40 mg PO DAILY 10/23/15 01/30/17 [Citalopram HBr] Cranberry Fruit Extract [Cranberry] 425 mg PO DAILY 10/23/15 01/30/17 Cyanocobalamin (Vitamin B-12) 1,000 mcg PO DAILY 10/23/15 01/30/17 [Vitamin B12] Insulin Glargine,Hum.rec.anlog 39 unit SQ HS 10/23/15 01/30/17 [Lantus Solostar] Nitroglycerin [Nitrostat] 0.4 mg SL AD PRN 10/23/15 01/30/17 Simvastatin [Zocor] 40 mg PO HS 10/23/15 01/30/17 Valsartan [Diovan] 160 mg PO DAILY 10/23/15 01/30/17 Omeprazole [PriLOSEC] 20 mg PO BIDAC 01/30/17 01/30/17 Allergies Allergy/AdvReac Type Severity Reaction Status Date / Time Sulfa (Sulfonamide Allergy Swelling Verified 10/23/15 11:35 Antibiotics) of Lip/Tongue/Throat codeine AdvReac Rash Verified 10/23/15 11:35 Penicillins [PCN] AdvReac Rash Verified 10/23/15 11:35 All systems ED: reviewed and negative except as stated. Review of Systems: As Per HPI Constitutional: Reports: weakness. Denies: fever Eyes: Denies: vision change ENT ED: Denies: congestion Cardiovascular: Denies: chest pain, palpitations Respiratory: Reports: cough. Denies: dyspnea Gastrointestinal: Reports: abdominal pain. Denies: nausea, vomiting Genitourinary: Denies: urgency, dysuria Musculoskeletal: Reports: back pain Integumentary: Denies: rash Neurological: Denies: headache Endocrine: Reports: fatigue Hematological/Lymphatic: Reports: easy bleeding Past Medical History - Past Medical History Attestation: Yes The following information was validated with the patient. Source: patient, nursing notes reviewed Medical history: Reports: arthritis, diabetes, hyperlipidemia, hypertension, renal disease Surgical history: Reports: cataract, cholecystectomy, hysterectomy, orthopedic, other Psychiatric history: Reports: no psych history - Social History Smoking Status: Never smoker Smokeless Tobacco Status: No Alcohol use: Reports: none Drug use: Reports: none Physical Exam Vital Signs Temperature 99.4 F 01/30/17 10:41 Pulse Rate 80 01/30/17 10:41 Respiratory Rate 15 01/30/17 10:41 Blood Pressure 140/48 01/30/17 10:41 O2 Sat by Pulse Oximetry 98 01/30/17 10:41 Temperature 99.4 F 01/30/17 10:41 Pulse Rate 80 01/30/17 10:41 Respiratory Rate 15 01/30/17 10:41 Blood Pressure 140/48 01/30/17 10:41 O2 Sat by Pulse Oximetry 98 01/30/17 10:41 Oxygen Delivery Oxygen Delivery Room Air 71-year-old female who is alert and oriented 3. Patient has conversational dyspnea and is panting to catch her breath. Patient has visible pallor from head to toe. Patient also has conjunctival pallor. - General General appearance: alert, in no apparent distress - Head Head exam: atraumatic, normocephalic, normal inspection - Eye Eye exam: Present: normal appearance, PERRL, EOMI - ENT ENT exam: normal exam, normal oropharynx, mucous membranes moist - Neck Neck exam: Present: normal inspection, full ROM, trachea midline - Chest Chest inspection: Present: normal inspection, symmetric chest wall rise - Respiratory Respiratory exam: Present: normal lung sounds bilaterally - Cardiovascular Cardiovascular exam: Present: regular rate, normal rhythm, normal heart sounds - Abdominal Exam Abdominal exam: Present: soft, tenderness Abdominal tenderness: Present: epigastrium (Worsening epigastric), diffuse - Rectal Exam [employer] present during exam: Yes Rectal exam: Present: hemorrhoids. Absent: black stool, bloody stool, fecal impaction - Extremities Exam Extremities exam: Present: normal inspection, full ROM. Absent: tenderness, normal capillary refill (Delayed), pedal edema - Back Exam Back exam: Present: normal inspection, full ROM, CVA tenderness (L). Absent: tenderness, CVA tenderness (R) - Neurological Exam Neurological exam: Present: alert, oriented X3 - Skin Skin exam: Present: warm, dry, intact, pallor. Absent: diaphoresis, erythema Course Vital Signs Temperature 99.4 F 01/30/17 10:41 Pulse Rate 80 01/30/17 10:41 Respiratory Rate 15 01/30/17 10:41 Blood Pressure 140/48 01/30/17 10:41 O2 Sat by Pulse Oximetry 98 01/30/17 10:41 Temperature 97.4 F L 01/30/17 14:06 Pulse Rate 80 01/30/17 10:41 Respiratory Rate 18 01/30/17 14:06 Blood Pressure 136/82 01/30/17 14:06 O2 Sat by Pulse Oximetry 98 01/30/17 10:41 Oxygen Delivery Oxygen Delivery Room Air Medical Decision Making - MDM Narrative Medical decision making narrative: Severe anemia. Transfusion orders ordered for 2 units of RBCs. 2 L IV normal saline ordered. Plan is for admission. FOB T shows negative for rectal bleed. Chest x-ray negative for any other abnormalities. Patient accepts for admission. Dr. Aranda the hospitalist has accepted patient for admission at 1218 hrs. - Lab Data Lab results reviewed: Yes I reviewed the patient's lab results. Lab results narrative: Short CBC 01/30/17 Range/Units 11:04 WBC 6.0 (4.3-11.1) K/mcL Hgb 6.6 L (11.5-15.4) g/dL Hct 22.1 L (35.3-44.9) % Plt Count 234 (140-400) K/mcL Neutrophils # 4.9 (1.6-8.9) K/mcL BMP 01/30/17 Range/Units 11:04 Sodium 138 (136-145) mEq/L Potassium 4.0 (3.5-4.5) mEq/L Chloride 104 (98-109) mEq/L Carbon Dioxide 24 (19-29) mEq/L BUN 20 (7-20) mg/dL Creatinine 1.41 H (0.57-1.11) mg/dL Glucose 128 H (70-99) mg/dL Calcium 9.1 (8.6-10.8) mg/dL Result diagrams: 01/30/17 11:04 01/30/17 11:04 Lab Results 01/30/17 01/30/17 01/30/17 Range/Units 11:04 11:04 11:04 WBC 6.0 (4.3-11.1) K/mcL RBC 2.52 L (3.82-4.97) M/mcL Hgb 6.6 L (11.5-15.4) g/dL Hct 22.1 L (35.3-44.9) % MCV 87.7 (83.0-100.0) fL MCH 26.2 L (28.0-33.3) pg MCHC 29.9 L (31.6-35.5) g/dL RDW 17.5 H (11.5-14.5) % Plt Count 234 (140-400) K/mcL MPV 10.5 (9.4-12.4) fL Seg Neutrophils % 82.0 % Lymphocytes % 16.0 % Monocytes % 2.0 % Neutrophils # 4.9 (1.6-8.9) K/mcL Lymphocytes # 1.0 (0.6-4.6) K/mcL Monocytes # 0.1 (0.0-1.3) K/mcL Platelet Estimate Normal (Normal) Polychromasia 1+ A (Not Present) Hypochromasia Present A (Not Present) PT 11.6 (9.4-12.1) Seconds INR 1.1 APTT 25.7 L (26.0-36.0) Seconds Sodium 138 (136-145) mEq/L Potassium 4.0 (3.5-4.5) mEq/L Chloride 104 (98-109) mEq/L Carbon Dioxide 24 (19-29) mEq/L BUN 20 (7-20) mg/dL Creatinine 1.41 H (0.57-1.11) mg/dL Est GFR ( Amer) 44 L (> 60) Est GFR (Non-Af Amer) 37 L (> 60) BUN/Creatinine Ratio 14 (6-26) Glucose 128 H (70-99) mg/dL Calculated Osmolality 290 (280-300) Calcium 9.1 (8.6-10.8) mg/dL Iron 21 L (50-170) mcg/dL Stool Occult Blood (Negative) Blood Type Antibody Screen Crossmatch 01/30/17 01/30/17 Range/Units 11:04 11:07 WBC (4.3-11.1) K/mcL RBC (3.82-4.97) M/mcL Hgb (11.5-15.4) g/dL Hct (35.3-44.9) % MCV (83.0-100.0) fL MCH (28.0-33.3) pg MCHC (31.6-35.5) g/dL RDW (11.5-14.5) % Plt Count (140-400) K/mcL MPV (9.4-12.4) fL Seg Neutrophils % % Lymphocytes % % Monocytes % % Neutrophils # (1.6-8.9) K/mcL Lymphocytes # (0.6-4.6) K/mcL Monocytes # (0.0-1.3) K/mcL Platelet Estimate (Normal) Polychromasia (Not Present) Hypochromasia (Not Present) PT (9.4-12.1) Seconds INR APTT (26.0-36.0) Seconds Sodium (136-145) mEq/L Potassium (3.5-4.5) mEq/L Chloride (98-109) mEq/L Carbon Dioxide (19-29) mEq/L BUN (7-20) mg/dL Creatinine (0.57-1.11) mg/dL Est GFR ( Amer) (> 60) Est GFR (Non-Af Amer) (> 60) BUN/Creatinine Ratio (6-26) Glucose (70-99) mg/dL Calculated Osmolality (280-300) Calcium (8.6-10.8) mg/dL Iron (50-170) mcg/dL Stool Occult Blood Negative (Negative) Blood Type A POSITIVE Antibody Screen NEGATIVE Crossmatch See Detail - Radiology Data Radiology results reviewed: Yes I reviewed the patient's radiology results. Chest X-Ray 01/30/17 11:31 IMPRESSION: No evidence for acute cardiopulmonary process. D/ / Stanislaw El MD / Stanislaw El MD Interpreting Provider: Stanislaw El MD - EKG Data EKG #1 EKG attestation: Yes I reviewed and interpreted this EKG. EKG results narrative: EKG taken at 01/30/2017 at 1101 hrs. shows a sinus rhythm at a rate of [address] elevations or depressions., Patient has nonspecific ST inversion lead 3 which can be seen on his EKG taken 06/10/2016. No WPW no Brugada. Patient EKG shows no signs of ischemia. Attestation Statement - Attestation Attestation: I examined this patient and my medical decision-making was reviewed with the Resident Physician. I agree with the documented findings, disposition and treatment plan as described except to the extent set forth below. 71-year-old female presents to the ED because of difficulty breathing and anemia. She has a history of recurring anemia that is on the bases of both iron deficiency and blood loss. She has had previous cauterization of bleeding in her upper GI tract. Last transfusion was about a month ago. Complains of increasing fatigue and dyspnea. She had routine labs drawn at her physician's office 4 days ago and he will was found to be 6.1. She was called this morning and advised to come to the ED. Denies chest pain. Does have discomfort in the upper abdomen that has been present for a couple of months. No dark or bloody stools. No fevers. Pale, elderly female who is slightly tachypneic. Oropharynx clear moist membranes are dry. Conjunctiva pale. Chest clear to auscultation bilaterally. Abdomen soft, nondistended and nontender to palpation. No CVA tenderness. Extremities warm and dry with trace edema. Hemoglobin today is 6.6. Stool is negative for occult blood. She will be admitted and transfused and may require further workup The high probability of a clinically significant, sudden or life threatening deterioration of the [cardiopulmonary] system(s) required my full and direct attention, intervention and personal management. The aggregate critical care time was [10] minutes. This time is in addition to time spent performing reported procedures but includes the following: [x] Data Review and interpretation [x] Patient assessment and monitoring of vital signs [x] Documentation [x] Medication orders and management
[2017-01-30 11:26] LABS: Hematocrit 22.1 % (35.3-44.9); Mean Corpuscular HGB Conc 29.9 g/dL (31.6-35.5); Mean Corpuscular Hemoglobin 26.2 pg (28.0-33.3); Mean Corpuscular Volume 87.7 fL (83.0-100.0); Mean Platelet Volume 10.5 fL (9.4-12.4); Platelet Count 234 K/mcL (140-400); Red Blood Count 2.52 M/mcL (3.82-4.97); Red Cell Distribution Width 17.5 % (11.5-14.5)
[2017-01-30 11:29] LABS: INR 1.1; Prothrombin Time 11.6 Seconds (9.4-12.1)
[2017-01-30 11:32] LABS: Activated Partial Thrombo Time 25.7 Seconds (26.0-36.0)
[2017-01-30 11:37] LABS: Calcium 9.1 mg/dL (8.6-10.8)
[2017-01-30 11:40] LABS: Hemoglobin 6.6 g/dL (11.5-15.4)
[2017-01-30 11:52] LABS: Monocytes # 0.1 K/mcL (0.0-1.3); Neutrophils # 4.9 K/mcL (1.6-8.9)
[2017-01-30 11:53] LABS: Platelet Estimate Normal (Normal)
[2017-01-30 11:54] LABS: Hypochromasia Present (Not Present); Polychromasia 1+ (Not Present)
[2017-01-30] MEDS ORDERED: 0.9 % Sodium Chloride 250 ML ONE ×2 (14:19→21:40)
[2017-01-30] MEDS ORDERED: Naloxone 0.4 MG/ML INJ IVP PRN (15:44)
[2017-01-30] MEDS ORDERED: Pantoprazole 40 MG in 0.9 % Sodium Chloride Mini Bag 100 ML IVC SCH (15:45)
[2017-01-30] MEDS ORDERED: D5% in Water 1,000 ML IVC PRN (16:17)
[2017-01-30] MEDS ORDERED: Dextrose Gel 15 GM PO PRN ×2 (16:17)
[2017-01-30] MEDS ORDERED: *HR* Dextrose 50 % in Water (Syg) 50 ML SYRINGE IVP PRN (16:17)
--- NOTE | 2017-01-30 16:18 | Internal Med History&Physical ---
Date of Encounter: 01/31/17 Time of Encounter: 16:00 Assessment and Plan (1) Symptomatic anemia Current visit: No Status: Acute 2 units PRBCs transfusion started. Will start PPI IV. Does not seem to be bleeding. stools are negative for occult bleeding. 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 Q6 hours H/H. check CT Abd/pelvis. check iron studies. This possibly could be from chronic kidney disease. Will run this by surgery to see if they want to be involved. She is hemodynamically stable. (2) Diabetes mellitus Current visit: No Status: Chronic Will put her on SSI for now and avoid basal insulin tilll she is having adequate PO. 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 BUN seems to be at baseline which goes against upper GI bleed. Will monitor for now Qualifiers: Chronic kidney disease stage: stage 3 (moderate) Qualified Code(s): N18.3 - Chronic kidney disease, stage 3 (moderate) (4) Hypertension Current visit: No Status: Chronic Hold BP meds today. BP is stable Qualifiers: Hypertension type: essential hypertension Qualified Code(s): I10 - Essential (primary) hypertension (5) DVT prophylaxis Current visit: No Status: Acute SCDs. Avoid pharmacological agents due to low H/H Internal Medicine - H&P: HPI Chief complaint: Anemia History of present illness: 71-year-old female with a history of chronic kidne disease stage III diabetes hypertension hypelipidemia who presented to the ED as he was called by her senior mechanical design engineer due to findings of anemia when her labs were checked in the outpatient setting. The patient herself has no significant complaints other than what sounds like chronic achy abdominal pain is mostly on the left side of her abdomen that shoots down to her lower abdomen area. There is not one thing she can associate this pain with. She has had no reported melena, hemtochezia, or hematemesis whatsoever. she is complaining of lethargy and shortness of breath any exertion. She denies any fever chills, nausea, vomiting, chest pain, urinary symptoms or neurological symptoms. She also has complains of shortness of breath for sometime now. Repeat hemoglobin in the ED was 6.6. It was 6/1 a few days ago. She was started on PRBCs transfusion in the ED with 2 units already. Past Med Surg Social Fam HX - Past Medical History Medical history: arthritis, diabetes, hyperlipidemia, hypertension, renal disease Psychiatric history: no psych history - Past Surgical History Surgical History: cataract, cholecystectomy, hysterectomy, orthopedic, other - Social History Smoking Status: Former smoker Smokeless Tobacco Status: No Alcohol use: none Drug use: none - Family History Mother Adopted: No Family Member Ethnicity: Non- Living Status: Hx Family Cardiac Disorders: Yes Hx Family Respiratory Disorders: Yes Hx Family Cancer: Yes (HAD SKIN CA REMOVED RECENTLY) Hx Family GI Disorders: No Hx Family Endocrine Disorder: Yes Hx Family Neuromuscular Disorders: No Hx Family Neurologic Disorders: Yes Hx Family HEENT Disorders: No Hx Family Autoimmune Disorders: No Son Adopted: No Family Member Ethnicity: Non- Living Status: Hx Family Cardiac Disorders: Yes Hx Family Respiratory Disorders: Yes Hx Family Cancer: Yes (HAD SKIN CA REMOVED RECENTLY) Hx Family GI Disorders: No Hx Family Endocrine Disorder: Yes Hx Family Neuromuscular Disorders: No Hx Family Neurologic Disorders: Yes Hx Family HEENT Disorders: No Hx Family Autoimmune Disorders: No Internal Medicine - H&P: Meds Acetaminophen [Tylenol] 500 mg PO Q6HR PRN 10/23/15 [History] Chlorthalidone 25 mg PO DAILY 10/23/15 [History] Citalopram Hydrobromide [Citalopram HBr] 40 mg PO DAILY 10/23/15 [History] Cranberry Fruit Extract [Cranberry] 425 mg PO DAILY 10/23/15 [History] Cyanocobalamin (Vitamin B-12) [Vitamin B12] 1,000 mcg PO DAILY 10/23/15 [History ] Insulin Glargine,Hum.rec.anlog [Lantus Solostar] 39 unit SQ HS 10/23/15 [History ] Nitroglycerin [Nitrostat] 0.4 mg SL AD PRN 10/23/15 [History] Simvastatin [Zocor] 40 mg PO HS 10/23/15 [History] Valsartan [Diovan] 160 mg PO DAILY 10/23/15 [History] Omeprazole [PriLOSEC] 20 mg PO BIDAC 01/30/17 [History] 3 Allergy/AdvReac Type Severity Reaction Status Date / Time Sulfa (Sulfonamide Allergy Swelling Verified 10/23/15 11:35 Antibiotics) of Lip/Tongue/Throat codeine AdvReac Rash Verified 10/23/15 11:35 Penicillins [PCN] AdvReac Rash Verified 10/23/15 11:35 All Systems PM: A 10-system review of systems was performed and is negative for pertinent findings except as documented above in the HPI. Review of systems: all systems reviewed are negative except what is mentioned above history of present illnes - Constitutional Vitals: Temp Pulse Resp BP Pulse Ox 99.1 F 75 18 130/74 100 01/30/17 14:56 01/30/17 14:56 01/30/17 14:56 01/30/17 14:56 01/30/17 14:56 Exam: GEN: NAD. Pallor noted HEENT: AT, NC, No cyanosis, oral mucosa is moist, No JVD Lymphatics: No lymphadenoapthy Eyes: Extrocular muscles intact, anicteric CVS:RRR. S1, S2, No m/r/g RESP: CTAB ABD: Soft, NT, ND, +BS EXT: No edema, No rashes, 2+ DP NEURO: Nonfocal, CN II-XII intact, No focal motor or sensory deficits Psych: Cooperative, Not anxious or depressed Internal Med - H&P Results - Labs CBC & Chem 7: 01/31/17 01:34 01/31/17 01:34 - VTE Reasons for not Prescribing Prophylaxis: Medical contraindication
[2017-01-30] MEDS: Insulin LISPRO 300 UNITS/3 ML VIAL SQ SCH ×2 (16:54→22:00)
[2017-01-30] MEDS: Acetaminophen 325 MG TABLET PO PRN (17:05)
[2017-01-30] MEDS: 0.9 % Sodium Chloride 1,000 ML IVC SCH (18:06)
[2017-01-30] MEDS: Pantoprazole 80 MG in 0.9 % Sodium Chloride 250 ML IVC SCH (18:06)
--- NOTE | 2017-01-30 23:05 | General Surgery Consult Note ---
Date of Encounter: 01/30/17 Time of Encounter: 23:01 Assessment and Plan (1) Severe anemia Current Visit: Yes Status: Acute likely 2/2 GI bleeding; currently receiving 2 units of PRBC, vitals are stable; - NPO at midnight - bowel prep - trend h/h - PPI gtt - if not acute events overnight, will plan for upper and lower scopes with Dr. 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 The pateint states that she has feeling nauseated with generalized abdominal pain and associated lightheadedness and dizziness. No reports of fevers, chills , vomiting, nor melena. However her lab results from her PCP demonstrated a noticeable drop in her hgb from ~ 9 to 6.7. Past Med Surg Social Fam HX - Past Medical History Medical history: arthritis, diabetes, hyperlipidemia, hypertension, renal disease Psychiatric history: no psych history - Past Surgical History Surgical History: cataract, cholecystectomy, hysterectomy, orthopedic, other - Social History Smoking Status: Former smoker Smokeless Tobacco Status: No Alcohol use: none Drug use: none - Family History Son Adopted: No Family Member Ethnicity: Non- Living Status: Hx Family Cardiac Disorders: Yes Hx Family Respiratory Disorders: Yes Hx Family Cancer: Yes (HAD SKIN CA REMOVED RECENTLY) Hx Family GI Disorders: No Hx Family Endocrine Disorder: Yes Hx Family Neuromuscular Disorders: No Hx Family Neurologic Disorders: Yes Hx Family HEENT Disorders: No Hx Family Autoimmune Disorders: No Mother Adopted: No Family Member Ethnicity: Non- Living Status: Hx Family Cardiac Disorders: Yes Hx Family Respiratory Disorders: Yes Hx Family Cancer: Yes (HAD SKIN CA REMOVED RECENTLY) Hx Family GI Disorders: No Hx Family Endocrine Disorder: Yes Hx Family Neuromuscular Disorders: No Hx Family Neurologic Disorders: Yes Hx Family HEENT Disorders: No Hx Family Autoimmune Disorders: No Medications and Allergies Acetaminophen [Tylenol] 500 mg PO Q6HR PRN 10/23/15 [History] Chlorthalidone 25 mg PO DAILY 10/23/15 [History] Citalopram Hydrobromide [Citalopram HBr] 40 mg PO DAILY 10/23/15 [History] Cranberry Fruit Extract [Cranberry] 425 mg PO DAILY 10/23/15 [History] Cyanocobalamin (Vitamin B-12) [Vitamin B12] 1,000 mcg PO DAILY 10/23/15 [History ] Insulin Glargine,Hum.rec.anlog [Lantus Solostar] 39 unit SQ HS 10/23/15 [History ] Nitroglycerin [Nitrostat] 0.4 mg SL AD PRN 10/23/15 [History] Simvastatin [Zocor] 40 mg PO HS 10/23/15 [History] Valsartan [Diovan] 160 mg PO DAILY 10/23/15 [History] Omeprazole [PriLOSEC] 20 mg PO BIDAC 01/30/17 [History] 3 Allergy/AdvReac Type Severity Reaction Status Date / Time Sulfa (Sulfonamide Allergy Swelling Verified 10/23/15 11:35 Antibiotics) of Lip/Tongue/Throat codeine AdvReac Rash Verified 10/23/15 11:35 Penicillins [PCN] AdvReac Rash Verified 10/23/15 11:35 Review of Systems All systems PM: A 10-system review of systems was performed and is negative for pertinent findings except as documented above in the HPI. General Surgery Exam Initial Vital Signs Temp Pulse Resp BP Pulse Ox 99.4 F 80 15 140/48 98 01/30/17 10:41 01/30/17 10:41 01/30/17 10:41 01/30/17 10:41 01/30/17 10:41 - General physical appearance well developed, no distress - Eyes normal ocular movement - Neck no lymphadectomy - Respiratory normal expansion, normal respiratory effort - Cardiovascular Cardiovascular exam: Present: RRR - Abdomen Abdomen general surgery: Present: soft, tender (non peritoneal at mid to lower abdomen) - Integumentary Integumentary general surgery: Present: warm and dry - Neurologic Present: CN 2-12 grossly intact - Psychiatric Psychiatric general surgery: Present: A&Ox3 Exam Initial Vital Signs Temp Pulse Resp BP Pulse Ox 99.4 F 80 15 140/48 98 01/30/17 10:41 01/30/17 10:41 01/30/17 10:41 01/30/17 10:41 01/30/17 10:41 Results - Labs 01/30/17 11:04 01/30/17 11:04 Abnormal lab results RBC 2.52 M/mcL (3.82-4.97) L 01/30/17 11:04 Hgb 6.6 g/dL (11.5-15.4) L 01/30/17 11:04 Hct 22.1 % (35.3-44.9) L 01/30/17 11:04 MCH 26.2 pg (28.0-33.3) L 01/30/17 11:04 MCHC 29.9 g/dL (31.6-35.5) L 01/30/17 11:04 RDW 17.5 % (11.5-14.5) H 01/30/17 11:04 Polychromasia 1+ (Not Present) A 01/30/17 11:04 Hypochromasia Present (Not Present) A 01/30/17 11:04 APTT 25.7 Seconds (26.0-36.0) L 01/30/17 11:04 Creatinine 1.41 mg/dL (0.57-1.11) H 01/30/17 11:04 Est GFR ( Amer) 44 (> 60) L 01/30/17 11:04 Est GFR (Non-Af Amer) 37 (> 60) L 01/30/17 11:04 Glucose 128 mg/dL (70-99) H 01/30/17 11:04 Iron 21 mcg/dL (50-170) L 01/30/17 11:04 All other labs normal. - Imaging CT scan - abdomen: report reviewed, image reviewed CT scan - pelvis: report reviewed, image reviewed (All imaging personally reviewed by me) Consult Discharge Plan - Plan Referrals: Hayder Chandler DO [Primary Care Provider] -
[2017-01-30] MEDS ORDERED: Polyethylene Glycol 3350 255 GM POWDER PO ONE (23:12)
[2017-01-31 02:08] LABS: Basophils % 0.4 %; Eosinophils # 0.1 K/mcL (0.0-0.6); Eosinophils % 2.5 %; Hematocrit 29.1 % (35.3-44.9); Hemoglobin 8.7 g/dL (11.5-15.4); Immature Granulocytes % 0.6 % (0-4); Lymphocytes # 1.7 K/mcL (0.6-4.6); Lymphocytes % 33.3 %; Mean Corpuscular HGB Conc 29.9 g/dL (31.6-35.5); Mean Corpuscular Hemoglobin 26.4 pg (28.0-33.3); Mean Corpuscular Volume 88.4 fL (83.0-100.0); Mean Platelet Volume 10.5 fL (9.4-12.4); Monocytes # 0.4 K/mcL (0.0-1.3); Monocytes % 6.9 %; Neutrophils # 2.9 K/mcL (1.6-8.9); Platelet Count 236 K/mcL (140-400); Red Blood Count 3.29 M/mcL (3.82-4.97); Red Cell Distribution Width 17.5 % (11.5-14.5); Segmented Neutrophils % 56.3 %
[2017-01-31 02:26] LABS: % Iron Saturation 17 % (15-50); Iron 76 mcg/dL (50-170); Transferrin 315 mg/dL (180-382)
[2017-01-31 02:27] LABS: Calcium 9.2 mg/dL (8.6-10.8); Magnesium 1.9 mg/dL (1.6-2.6); Phosphorous 3.4 mg/dL (2.3-4.7); Potassium 3.7 mEq/L (3.5-4.5)
[2017-01-31] MEDS: 0.9 % Sodium Chloride 1,000 ML IVC SCH ×2 (04:01→15:31)
[2017-01-31] MEDS: Pantoprazole 80 MG in 0.9 % Sodium Chloride 250 ML IVC SCH ×2 (04:23→16:56)
[2017-01-31] MEDS: Acetaminophen 325 MG TABLET PO PRN (04:43)
[2017-01-31] MEDS: Insulin LISPRO 300 UNITS/3 ML VIAL SQ SCH ×3 (07:49→16:57)
[2017-01-31] MEDS: Valsartan 160 MG TABLET PO SCH (09:41)
[2017-01-31] MEDS: Cyanocobalamin (B-12) 1,000 MCG TABLET PO SCH (09:42)
[2017-01-31] MEDS ORDERED: *HR* Midazolam HCl 5 MG/5 ML VIAL IVP ONE ×3 (11:45→12:35)
[2017-01-31] MEDS ORDERED: Tetracaine/Benzocaine/Butamben 200MG/SPRAY (100SPY/BOT) MM ONE (11:45)
[2017-01-31] MEDS ORDERED: *HR* FentaNYL (PF) 100 MCG/2 ML VIAL IVP ONE (11:45)
[2017-01-31] MEDS ORDERED: Simethicone 40 MG/0.6 ML MLS IR ONE (11:45)
--- NOTE | 2017-01-31 11:45 | Pre-Sedation Evaluation ---
Pre-sedation evaluation - Pre-sedation checklist Date of procedure: 01/31/17 Procedure: EGD and colonoscopy Recent Vitals: Last Vital Signs Temp 97.6 F 01/31/17 07:43 Pulse 66 01/31/17 07:43 Resp 18 01/31/17 07:43 BP 118/67 01/31/17 07:43 Pulse Ox 96 01/31/17 07:43 H&P (including ROS) documented in medical record: Yes Previous reaction to sedatives/anesthetics: No Dietary Status: NPO after Midnight Dentition: No loose teeth or bridges ASA Classification *see protocol: CLASS III-Severe systemic disease Plan of Care: Pt appropriate candidate for procedure/moderate/conscious sedation , Risks/benefits of procedure/sedation discussed w/ patient/family
[2017-01-31] MEDS ORDERED: *HR* FentaNYL (PF) 100 MCG/2 ML VIAL ONE (11:53)
--- NOTE | 2017-01-31 12:45 | Internal Med Progress Note ---
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 Stools negative for blood but that does not necessarily rule out GI bleed. She has CKD as well that is contributing to her anemia. The patient is status post 2 units of PRBCs. Her hemoglobin is up adequately. She has not needed any more transfusions. She seen by surgery with plans for upper and lower scopes today. We will follow those. (2) Diabetes mellitus Current Visit: No Status: Chronic Assessment and plan: Continue this in sinus care for now up until she is able to take by mouth. She is currently nothing by mouth in preparation for the scopes. Continue with Accu -Cheks. Qualifiers: Diabetes mellitus type: type 2 Diabetes mellitus complication status: with unspecified complications Diabetes mellitus longterm insulin use: unspecified longterm insulin use status Qualified Code(s): E11.8 - Type 2 diabetes mellitus with unspecified complications (3) CKD (chronic kidney disease) Current Visit: No Status: Chronic Assessment and plan: This seems to be stable. We will continue to monitor labs in the morning. Qualifiers: Chronic kidney disease stage: stage 3 (moderate) Qualified Code(s): N18.3 - Chronic kidney disease, stage 3 (moderate) (4) Hypertension Current Visit: No Status: Chronic Assessment and plan: Blood pressure is stable for now. She resumed her home medications. Qualifiers: Hypertension type: essential hypertension Qualified Code(s): I10 - Essential (primary) hypertension (5) DVT prophylaxis Current Visit: No Status: Acute Assessment and plan: SCDs. - Subjective Interval history: The patient was seen and examined by me. She is doing well this morning she has had 2 units of blood transfusion overnight however her second unit had to be stopped a little bit after retirement as her IV infiltrated and it is restarting this morning. She has had no melanotic stools. Seen by surgery - Constitutional Vitals: Temp Pulse Resp BP Pulse Ox 98 F 71 16 126/70 99 01/31/17 11:40 01/31/17 12:32 01/31/17 12:32 01/31/17 12:32 01/31/17 12:32 Exam: GEN: NAD CVS: RRR. S1, S2, No m/r/g RESP: CTAB ABD: Soft, NT, ND, +BS EXT: No edema. 2+ DP, No rashes NEURO: Nonfocal Internal Medicine: Result - Labs CBC & Chem 7: 01/31/17 01:34 01/31/17 01:34 Labs: Short CBC 01/31/17 Range/Units 01:34 WBC 5.2 (4.3-11.1) K/mcL Hgb 8.7 L D (11.5-15.4) g/dL Hct 29.1 L (35.3-44.9) % Plt Count 236 (140-400) K/mcL Neutrophils # 2.9 (1.6-8.9) K/mcL BMP 01/31/17 01:34 Sodium 139 Potassium 3.7 Chloride 110 H Carbon Dioxide 20 BUN 17 Creatinine 1.31 H Glucose 122 H Calcium 9.2 - ABG Interpretation ABG results: PT/INR, D-dimer PT 11.6 Seconds (9.4-12.1) 01/30/17 11:04 - Impressions Impressions Abdomen/Pelvis CT 01/30/17 16:10 IMPRESSION: Diverticulosis. Cirrhosis. D/ / Yusef Bowling MD / Yusef Bowling MD Interpreting Provider: Yusef Bowling MD - VTE Reasons for not Prescribing Prophylaxis: Medical contraindication Consult Discharge Plan - Plan Referrals: Hayder Chandler DO [Primary Care Provider] -
--- NOTE | 2017-01-31 14:12 | Electrocardiograph Report ---
[facility] Date: 2017-01-30 Pat Name: Blanca Pacheco Department: 104 Room: 2A34 Gender: F [employer]: AM : 1945 Requested By: Seven Deluca Order Number: [id number] Reading MD: Qamar Hughes MD Measurements Intervals [place] Rate: 68 P: -20 AK: 137 QRS: -20 QRSD: 85 T: 9 QT: 389 QTc: 406 Interpretive Statements SINUS RHYTHM wnl Electronically Signed On 01-31-2017 14:10:31 EST by Qamar Hughes MD
[2017-01-31] MEDS ORDERED: Pantoprazole 40 MG in 0.9 % Sodium Chloride Mini Bag 100 ML IVC SCH (15:30)
[2017-02-01] MEDS: Insulin LISPRO 300 UNITS/3 ML VIAL SQ SCH ×5 (02:30→23:17)
[2017-02-01] MEDS: 0.9 % Sodium Chloride 1,000 ML IVC SCH ×2 (02:31→10:07)
[2017-02-01] MEDS: Benzonatate 100 MG CAPSULE PO PRN ×2 (02:58→23:19)
[2017-02-01] MEDS: Acetaminophen 325 MG TABLET PO PRN ×4 (03:01→23:24)
[2017-02-01] MEDS: Pantoprazole 80 MG in 0.9 % Sodium Chloride 250 ML IVC SCH ×2 (04:04→18:06)
[2017-02-01 04:50] LABS: Basophils % 0.1 %; Eosinophils # 0.1 K/mcL (0.0-0.6); Eosinophils % 0.7 %; Hematocrit 23.7 % (35.3-44.9); Immature Granulocytes % 0.5 % (0-4); Lymphocytes # 0.6 K/mcL (0.6-4.6); Lymphocytes % 5.1 %; Mean Corpuscular HGB Conc 29.5 g/dL (31.6-35.5); Mean Corpuscular Hemoglobin 26.3 pg (28.0-33.3); Mean Corpuscular Volume 89.1 fL (83.0-100.0); Mean Platelet Volume 10.5 fL (9.4-12.4); Monocytes # 0.5 K/mcL (0.0-1.3); Monocytes % 4.9 %; Neutrophils # 9.5 K/mcL (1.6-8.9); Platelet Count 169 K/mcL (140-400); Red Blood Count 2.66 M/mcL (3.82-4.97); Red Cell Distribution Width 17.5 % (11.5-14.5); Segmented Neutrophils % 88.7 %
[2017-02-01 05:01] LABS: Calcium 8.3 mg/dL (8.6-10.8)
--- NOTE | 2017-02-01 08:20 | General Surgery Progress Note ---
<Grey Ortega - Last Filed: 02/01/17 11:18> Date of Encounter: 02/01/17 Time of Encounter: 08:20 - Assessment and Plan (1) Upper GI bleed Current Visit: Yes Status: Acute -Patient presented from PCPs office for asymptomatic anemia with an H&H of 6.6/ 22.1 - Has received a total of 2 units of packed red blood cells - H&H this morning with mild drop from yesterday at 7.0/23.7, was 8.7/29.1 after transfusion - EGD and colonoscopy performed yesterday. Colonoscopy removed 3 sessile polyps. 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 Visualized bleeding lesions were cauterized by argon beam - No reports of hematochezia, hematemesis, melena this morning - Transfusions per primary team - We will continue monitor at this time and if patient continues to exhibit signs and symptoms of persistent GI bleed will consider [place] I/II or Rosie-en -Y (2) Severe anemia Current Visit: Yes Status: Acute As above GI bleed - Transfusions per primary team - H&H this morning continues to be low (3) Hypertension Current Visit: Yes Status: Chronic Blood pressure well controlled at this time - Caution given signs and symptoms of bleeding - Management per primary team Qualifiers: Hypertension type: essential hypertension Qualified Code(s): I10 - Essential (primary) hypertension (4) DVT prophylaxis Current Visit: Yes Status: Acute - SCDs given bleeding, we will hold off on heparin Subjective Patient reports: no new complaints, feels better, pain is less, tolerating a regular diet, flatus, bowel movement Narrative: Patient was seen and examined at bedside this morning. She states that she tolerated both the EGD and colonoscopy yesterday without any complaints. She is still experiencing some diarrhea from the bowel prep, however has noticed no blood in stool. She denies any symptoms of nausea, vomiting, pain in the abdomen. She does state she has been chilled, admits to a productive cough with thick white sputum. Objective Vital Signs - Last 8 Hours Temp Pulse Resp BP Pulse Ox 02/01/17 07:24 102.5 F H 93 20 127/64 94 02/01/17 03:42 101.4 F H 91 14 111/68 95 Intake and Output 01/31/17 02/01/17 02/01/17 23:59 07:59 15:59 Intake Total 0 / 0 1250 / 1250 Output Total 0 / 0 Balance 0 / 0 1250 / 1250 Intake: IV Fluids 1250 / 1250 0.9 % Sodium Chloride 1,000 ML 1000 / 1000 @ 100 mls/hr IVC .Q10H AJ Rx#: [id number] Protonix 80 MG In 0.9 % Sodium 250 / 250 Chloride 250 ML @ 25 mls/hr IVC .Q10H AJ Rx#:[id number] Oral 0 / 0 Output: Urine 0 / 0 Other: Weight 103.4 kg Blood Glucose* 156 132 Patient Weight 02/01/17 23:59 Weight 103.4 kg - General physical appearance well developed, well nourished, no distress - Respiratory normal expansion, normal respiratory effort, clear to auscultation - Cardiovascular Cardiovascular exam: Present: RRR, no murmurs/rubs/gallops - Abdomen Abdomen: Present: bowel sounds present, soft, tender (Mild) Hernia: epigastric - Labs 02/01/17 04:15 02/01/17 04:15 Diabetes panel 02/01/17 Range/Units 04:15 Sodium 138 (136-145) mEq/L Potassium 4.0 (3.5-4.5) mEq/L Chloride 110 H (98-109) mEq/L Carbon Dioxide 23 (19-29) mEq/L BUN 15 (7-20) mg/dL Creatinine 1.21 H (0.57-1.11) mg/dL Glucose 157 H (70-99) mg/dL Calcium 8.3 L (8.6-10.8) mg/dL Calcium panel 02/01/17 Range/Units 04:15 Calcium 8.3 L (8.6-10.8) mg/dL Pituitary panel 02/01/17 Range/Units 04:15 Sodium 138 (136-145) mEq/L Potassium 4.0 (3.5-4.5) mEq/L Chloride 110 H (98-109) mEq/L Carbon Dioxide 23 (19-29) mEq/L BUN 15 (7-20) mg/dL Creatinine 1.21 H (0.57-1.11) mg/dL Glucose 157 H (70-99) mg/dL Calcium 8.3 L (8.6-10.8) mg/dL Adrenal panel 02/01/17 Range/Units 04:15 Sodium 138 (136-145) mEq/L Potassium 4.0 (3.5-4.5) mEq/L Chloride 110 H (98-109) mEq/L Carbon Dioxide 23 (19-29) mEq/L BUN 15 (7-20) mg/dL Creatinine 1.21 H (0.57-1.11) mg/dL Glucose 157 H (70-99) mg/dL Calcium 8.3 L (8.6-10.8) mg/dL - VTE Reasons for not Prescribing Prophylaxis: Medical contraindication Consult Discharge Plan - Plan Referrals: Hayder Chandler DO [Primary Care Provider] - 02/01/17 1:00 pm ( please follow up as schedule...) <Matthew Valencia - Last Filed: 02/02/17 07:20> Date of Encounter: 02/02/17 Objective Vital Signs - Last 8 Hours Temp Pulse Resp BP Pulse Ox 02/02/17 04:53 97.4 F L 71 16 111/57 95 02/02/17 00:23 98.5 F 72 16 110/57 94 Intake and Output 02/01/17 02/01/17 02/02/17 15:59 23:59 07:59 Intake Total 1650 / 1650 708 / 708 0 / 0 Output Total 0 / 0 Balance 1650 / 1650 708 / 708 0 / 0 Intake: IV Fluids 1050 / 1050 350 / 350 0.9 % Sodium Chloride 1,000 ML 800 / 800 @ 100 mls/hr IVC .Q10H AJ Rx#: [id number] Protonix 80 MG In 0.9 % Sodium 250 / 250 Chloride 250 ML @ 25 mls/hr IVC .Q10H AJ Rx#:[id number] Levaquin Premix 750mg/150 mL 150 / 150 750 mg In 150 ml @ 100 mls/hr IVPB Q48H AJ Rx#:[id number] Flagyl Premix 500 MG/100 ML 500 100 / 100 100 / 100 mg In 100 ml @ 100 mls/hr IVPB Q8HR AJ Rx#:[id number] Oral 300 / 300 80 / 80 0 / 0 Blood Product 300 / 300 278 / 278 Rbcs Leuko Poor As-1 Unit 300 / 300 [id number] Rbcs Leuko Poor As-1 Unit 0 / 0 278 / 278 [id number] Output: Urine 0 / 0 Other: Meal Lunch Dinner Percent of Meal Consumed 50% 0% # Voids 1 Weight 104.1 kg Blood Glucose* 141 130 Patient Weight 02/02/17 23:59 Weight 104.1 kg - Labs 02/02/17 05:07 02/02/17 05:07 Diabetes panel 02/02/17 Range/Units 05:07 Sodium 138 (136-145) mEq/L Potassium 3.6 (3.5-4.5) mEq/L Chloride 107 (98-109) mEq/L Carbon Dioxide 24 (19-29) mEq/L BUN 13 (7-20) mg/dL Creatinine 1.21 H (0.57-1.11) mg/dL Glucose 119 H (70-99) mg/dL Calcium 8.4 L (8.6-10.8) mg/dL Calcium panel 02/02/17 Range/Units 05:07 Calcium 8.4 L (8.6-10.8) mg/dL Pituitary panel 02/02/17 Range/Units 05:07 Sodium 138 (136-145) mEq/L Potassium 3.6 (3.5-4.5) mEq/L Chloride 107 (98-109) mEq/L Carbon Dioxide 24 (19-29) mEq/L BUN 13 (7-20) mg/dL Creatinine 1.21 H (0.57-1.11) mg/dL Glucose 119 H (70-99) mg/dL Calcium 8.4 L (8.6-10.8) mg/dL Adrenal panel 02/02/17 Range/Units 05:07 Sodium 138 (136-145) mEq/L Potassium 3.6 (3.5-4.5) mEq/L Chloride 107 (98-109) mEq/L Carbon Dioxide 24 (19-29) mEq/L BUN 13 (7-20) mg/dL Creatinine 1.21 H (0.57-1.11) mg/dL Glucose 119 H (70-99) mg/dL Calcium 8.4 L (8.6-10.8) mg/dL - Attending Attestation I examined this patient and my medical decision-making was reviewed with the Resident Physician. I agree with the documented findings, disposition and treatment plan as described except to the extent set forth below. The patient is seen and evaluated on morning rounds with the resident. 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 Avoid anti-coagulation and trsfuse as necessary. Await path on biopsy and polypectomy tissue. If surgery becomes necessary, antrectomy with reconstruction may be the only option Matthew Valencia MD FACS
[2017-02-01] MEDS: Cyanocobalamin (B-12) 1,000 MCG TABLET PO SCH (08:26)
[2017-02-01] MEDS: Valsartan 160 MG TABLET PO SCH (08:26)
--- NOTE | 2017-02-01 09:58 | Internal Med Progress Note ---
<BrettWayne vergara - Last Filed: 02/01/17 09:55> Date of Encounter: 02/01/17 Time of Encounter: 09:55 - Assessment and plan (1) Fever Current Visit: Yes Status: Acute Assessment and plan: Patient has a new fever this morning. Patient had been afebrile throughout her visit. She does report a mild cough. May be related to aspiration secondary to her endoscopic procedures yesterday. Does not appear to be related to her blood transfusions. We will obtain chest x-ray and treat empirically with flagyl and levaquin given her penicillin allergy. Tylenol when necessary. Qualifiers: Fever type: unspecified Qualified Code(s): R50.9 - Fever, unspecified (2) Symptomatic anemia Current Visit: No Status: Acute Assessment and plan: Secondary to multiple large bleeding angiodysplastic lesions found in the gastric antrum on upper endoscopy. Patient had a drop in her hemoglobin today is down to 7.0. Minimally symptomatic. Will transfuse 2 units. Patient is not a bowel movement since her procedures. Continue monitor CBC and bowel movements for evidence of active bleeding. Hemodynamically stable. (3) Upper GI bleed Current Visit: No Status: Suspected Assessment and plan: Secondary to multiple angiodysplastic lesions in the gastric antrum. Patient had argon beam treatments yesterday and also had argon beam cauterization in May. Discussed with surgery. If bleeding persists next step would be gastrectomy. We will continue to monitor for signs of active bleeding. Surgery continues to follow and we appreciate the recommendations. Continue PPI drip until okay with surgery to discontinue. (4) Diabetes mellitus Current Visit: No Status: Chronic Assessment and plan: Now the patient is eating we will restart her long-acting insulin. Continue sliding scale and continue to monitor. Qualifiers: Diabetes mellitus type: type 2 Diabetes mellitus complication status: with unspecified complications Diabetes mellitus senior care insulin use: unspecified senior care insulin use status Qualified Code(s): E11.8 - Type 2 diabetes mellitus with unspecified complications (5) Hypertension Current Visit: No Status: Chronic Assessment and plan: Blood pressure stable, continue home medications. Qualifiers: Hypertension type: essential hypertension Qualified Code(s): I10 - Essential (primary) hypertension (6) CKD (chronic kidney disease) Current Visit: No Status: Chronic Assessment and plan: Creatinine stable. Good urine output. Continue monitor. 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 Status post argon beam treatments. Surgery following, if persistent patient may require surgical intervention. - Subjective Interval history: Patient seen and examined at bedside. Patient states that she feels occasionally. She reports mild abdominal pain in her epigastric area and right upper quadrant that is gradually been improving since admission. She has not had a bowel movement since before her endoscopies yesterday. She reports feeling warm. She reports an occasional cough with no production. - Constitutional Vitals: Temp Pulse Resp BP Pulse Ox 102.5 F H 93 20 127/64 94 02/01/17 07:24 02/01/17 07:24 02/01/17 07:24 02/01/17 07:24 02/01/17 08:31 General appearance: Present: A&O X 3, pleasant, no acute distress - Respiratory Respiratory exam: Present: CTAB. Absent: rales, rhonchi, wheezes - Cardiovascular Cardiovascular exam: Present: RRR. Absent: gallop, rubs, systolic murmur - GI/Abdominal GI/Abdominal exam: Present: normal bowel sounds, soft, tenderness (mild epigastric). Absent: distended - Extremities Exam Extremities exam: Present: warm. Absent: pedal edema, tenderness - Neurological Exam Neurological exam: Present: alert, CN II-XII intact, oriented X3, no focal deficits Internal Medicine: Result - Labs CBC & Chem 7: 02/01/17 04:15 02/01/17 04:15 Labs: Short CBC 02/01/17 Range/Units 04:15 WBC 10.7 D (4.3-11.1) K/mcL Hgb 7.0 L D (11.5-15.4) g/dL Hct 23.7 L (35.3-44.9) % Plt Count 169 (140-400) K/mcL Neutrophils # 9.5 H (1.6-8.9) K/mcL BMP 02/01/17 04:15 Sodium 138 Potassium 4.0 Chloride 110 H Carbon Dioxide 23 BUN 15 Creatinine 1.21 H Glucose 157 H Calcium 8.3 L - ABG Interpretation ABG results: PT/INR, D-dimer PT 11.6 Seconds (9.4-12.1) 01/30/17 11:04 - VTE Reasons for not Prescribing Prophylaxis: Medical contraindication Consult Discharge Plan - Plan Referrals: Hayder Chandler DO [Primary Care Provider] - 02/01/17 1:00 pm ( please follow up as schedule...) <Abhay Sánchez H - Last Filed: 02/01/17 10:43> Date of Encounter: 02/01/17 - Constitutional Vitals: Temp Pulse Resp BP Pulse Ox 102.5 F H 93 20 127/64 94 02/01/17 07:24 02/01/17 07:24 02/01/17 07:24 02/01/17 07:24 02/01/17 08:31 Internal Medicine: Result - Labs CBC & Chem 7: 02/01/17 04:15 02/01/17 04:15 Labs: Short CBC 02/01/17 Range/Units 04:15 WBC 10.7 D (4.3-11.1) K/mcL Hgb 7.0 L D (11.5-15.4) g/dL Hct 23.7 L (35.3-44.9) % Plt Count 169 (140-400) K/mcL Neutrophils # 9.5 H (1.6-8.9) K/mcL BMP 02/01/17 04:15 Sodium 138 Potassium 4.0 Chloride 110 H Carbon Dioxide 23 BUN 15 Creatinine 1.21 H Glucose 157 H Calcium 8.3 L - ABG Interpretation ABG results: PT/INR, D-dimer PT 11.6 Seconds (9.4-12.1) 01/30/17 11:04 - Impressions Impressions Chest X-Ray 02/01/17 09:54 IMPRESSION: No acute cardiopulmonary disease. D/ / 02/01/2017 10:37:08 Cachorro Bryan MD / [email or web address] Interpreting Provider: Cachorro Bryan MD - Attending Attestation Acute blood loss anemia secondary to gastric angioplasties status post catheterization Give another unit of blood, monitor CBC Continue Protonix IV, surgery recommendations appreciated Possible aspiration pneumonia/pneumonitis Allergic to penicillins, start Levaquin and Flagyl in order chest x-ray SIRS/possible sepsis secondary to aspiration pneumonia I examined this patient and my medical decision-making was reviewed with the Resident Physician. I agree with the documented findings, disposition and treatment plan as described except to the extent set forth below.
[2017-02-01] MEDS ORDERED: 0.9 % Sodium Chloride 500 ML ONE ×2 (10:01→13:45)
[2017-02-01] MEDS ORDERED: Levofloxacin 750 MG/150 ML 750 MG/150 ML BAG IVPB SCH (11:00)
[2017-02-01] MEDS: traMADol 50 MG TABLET PO PRN ×2 (11:40→19:23)
[2017-02-01] MEDS: MetroNIDAZOLE 500 MG/100 ML 500 MG/100 ML BAG IVPB SCH ×3 (12:43→23:20)
[2017-02-01] MEDS ORDERED: MetroNIDAZOLE 500 MG/100 ML 500 MG/100 ML BAG IVPB SCH (16:00)
[2017-02-01] MEDS: Pantoprazole 40 MG VIAL IVP SCH (18:02)
[2017-02-01 19:31] LABS: Bilirubin,Urine Negative (Negative); Blood,Urine Trace (Negative); Clarity,Urine Cloudy (Clear); Color,Urine Yellow (Yellow); Glucose,Urine (UA) Normal (Normal); Ketones,Urine Negative (Negative); Leukocyte Esterase,Urine Moderate (Negative); Nitrite,Urine Negative (Negative); Protein,Urine Negative (Neg-Trace); Specific Gravity,Urine 1.017 (1.010-1.025); Urobilinogen,Urine Normal (Normal)
[2017-02-01 19:34] LABS: Bacteria,Urine Few per hpf (None-Few); Hyaline Casts,Urine None Seen per lpf (None-Few); Squamous Epithelial Cell,Urine Many per lpf (None-Few); WBC,Urine 30-50 per hpf (0-3)
[2017-02-01] MEDS: Ondansetron 4 MG/2 ML VIAL IVP PRN (23:19)
[2017-02-02 05:40] LABS: INR 1.3; Prothrombin Time 14.2 Seconds (9.4-12.1)
[2017-02-02] MEDS: Pantoprazole 40 MG VIAL IVP SCH ×2 (05:46→16:52)
[2017-02-02 05:48] LABS: Calcium 8.4 mg/dL (8.6-10.8); Magnesium 1.3 mg/dL (1.6-2.6); Potassium 3.6 mEq/L (3.5-4.5)
[2017-02-02 06:09] LABS: Basophils % 0.1 %; Eosinophils % 0.1 %; Hematocrit 28.2 % (35.3-44.9); Immature Granulocytes % 0.4 % (0-4); Lymphocytes # 1.2 K/mcL (0.6-4.6); Lymphocytes % 12.5 %; Mean Corpuscular HGB Conc 30.9 g/dL (31.6-35.5); Mean Corpuscular Hemoglobin 26.6 pg (28.0-33.3); Mean Corpuscular Volume 86.2 fL (83.0-100.0); Mean Platelet Volume 10.7 fL (9.4-12.4); Monocytes # 0.4 K/mcL (0.0-1.3); Monocytes % 4.3 %; Neutrophils # 7.9 K/mcL (1.6-8.9); Platelet Count 168 K/mcL (140-400); Red Blood Count 3.27 M/mcL (3.82-4.97); Red Cell Distribution Width 18.6 % (11.5-14.5); Segmented Neutrophils % 82.6 %
[2017-02-02 06:12] LABS: Hemoglobin 8.7 g/dL (11.5-15.4)
[2017-02-02] MEDS: Insulin LISPRO 300 UNITS/3 ML VIAL SQ SCH ×4 (08:05→23:11)
[2017-02-02] MEDS: Valsartan 160 MG TABLET PO SCH (08:24)
[2017-02-02] MEDS: Cyanocobalamin (B-12) 1,000 MCG TABLET PO SCH (08:24)
[2017-02-02] MEDS: MetroNIDAZOLE 500 MG/100 ML 500 MG/100 ML BAG IVPB SCH (08:25)
--- NOTE | 2017-02-02 09:15 | Internal Med Progress Note ---
<Wayne Norton - Last Filed: 02/02/17 10:18> Date of Encounter: 02/02/17 Time of Encounter: 09:12 - Assessment and plan (1) Fever Current Visit: Yes Status: Resolved Assessment and plan: Patient has been afebrile since yesterday afternoon. Chest x-ray was unremarkable, UA showed moderate leukocyte esterase however was a contaminated sample, patient is asymptomatic from a urinary standpoint. Etiology of infection is unclear, possibly related to H. pylori infection given the patient' s recurrent angiodysplasia of the gastric antrum. H. pylori testing is pending however when discussing the surgery they feel she may benefit from empiric treatment given her recurrent stomach issues. Continue antibiotics with metronidazole, will switch Levaquin to clarithromycin which we will continue to give us a pneumonia and bronchitis coverage and will also complete triple therapy treatment for H. pylori with PPI, and metronidazole, clarithromycin. Qualifiers: Fever type: unspecified Qualified Code(s): R50.9 - Fever, unspecified (2) Symptomatic anemia Current Visit: No Status: Acute Assessment and plan: Secondary to upper GI bleed. Patient is now asymptomatic Hemoglobin stable today status post transfusion of 2 units. No evidence of active bleeding. Continue to monitor CBC daily. (3) Upper GI bleed Current Visit: Yes Status: Acute Assessment and plan: Secondary to multiple angiodysplastic lesions in the gastric antrum. Patient had argon beam cauterization 2 days and also had argon beam cauterization in May. Discussed with surgery. If bleeding persists next step would be gastrectomy. We will continue to monitor for signs of active bleeding. Surgery continues to follow and we appreciate the recommendations. Transition to twice a day Protonix. Will empirically treat for H. pylori given recurrent issues. Discussed with surgery. (4) Diabetes mellitus Current Visit: No Status: Chronic Assessment and plan: Blood sugars been under control, continue current insulin regimen. Qualifiers: Diabetes mellitus type: type 2 Diabetes mellitus complication status: with unspecified complications Diabetes mellitus emt intermediate insulin use: unspecified emt intermediate insulin use status Qualified Code(s): E11.8 - Type 2 diabetes mellitus with unspecified complications (5) Hypertension Current Visit: Yes Status: Chronic Assessment and plan: Blood pressure stable, continue home medications. Qualifiers: Hypertension type: essential hypertension Qualified Code(s): I10 - Essential (primary) hypertension (6) CKD (chronic kidney disease) Current Visit: No Status: Chronic Assessment and plan: Creatinine stable. Good urine output. Continue monitor. 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 Status post argon beam treatments. Surgery following, if persistent patient may require surgical intervention. - Subjective Interval history: Patient seen and examined at bedside. Patient states that she feels better today. She reports mild abdominal pain in her epigastric area and right upper quadrant that is gradually been improving since admission. She states that this is chronic and has been going on for months. She reports feeling warm overnight, denies fever. She states she had a bowel movement yesterday that was green with dark streaks in it. Denies bright red blood or melena. - Constitutional Vitals: Temp Pulse Resp BP Pulse Ox 97.6 F 66 17 108/52 95 02/02/17 07:18 02/02/17 07:18 02/02/17 07:18 02/02/17 07:18 02/02/17 07:18 General appearance: Present: A&O X 3, pleasant, no acute distress - Respiratory Respiratory exam: Present: CTAB. Absent: rales, rhonchi, wheezes - Cardiovascular Cardiovascular exam: Present: RRR. Absent: gallop, rubs, systolic murmur - GI/Abdominal GI/Abdominal exam: Present: normal bowel sounds, soft, tenderness (Mild epigastric). Absent: distended - Extremities Exam Extremities exam: Present: pedal edema (r===trace), warm. Absent: tenderness - Neurological Exam Neurological exam: Present: alert, CN II-XII intact, oriented X3, no focal deficits Internal Medicine: Result - Labs CBC & Chem 7: 02/02/17 05:07 02/02/17 05:07 Labs: Short CBC 02/02/17 Range/Units 05:07 WBC 9.5 (4.3-11.1) K/mcL Hgb 8.7 L D (11.5-15.4) g/dL Hct 28.2 L (35.3-44.9) % Plt Count 168 (140-400) K/mcL Neutrophils # 7.9 (1.6-8.9) K/mcL BMP 02/02/17 05:07 Sodium 138 Potassium 3.6 Chloride 107 Carbon Dioxide 24 BUN 13 Creatinine 1.21 H Glucose 119 H Calcium 8.4 L Urine 02/01/17 Range/Units 19:15 Urine Color Yellow (Yellow) Urine Clarity Cloudy A (Clear) Urine pH 6.0 (5.0-8.0) pH Units Ur Specific Mobile 1.017 (1.010-1.025) Urine Protein Negative (Neg-Trace) mg/dL Urine Glucose (UA) Normal (Normal) mg/dL - ABG Interpretation ABG results: PT/INR, D-dimer PT 14.2 Seconds (9.4-12.1) H 02/02/17 05:07 - Impressions Impressions Chest X-Ray 02/01/17 09:54 IMPRESSION: No acute cardiopulmonary disease. D/ / 02/01/2017 10:37:08 Cachorro Bryan MD / [email or web address] Interpreting Provider: Cachorro Bryan MD - VTE Reasons for not Prescribing Prophylaxis: Medical contraindication Consult Discharge Plan - Plan Referrals: Hayder Chandler DO [Primary Care Provider] - 02/08/17 1:00 pm () <Abhay Sánchez H - Last Filed: 02/02/17 14:43> Date of Encounter: 02/02/17 - Constitutional Vitals: Temp Pulse Resp BP Pulse Ox 98.7 F 67 16 109/54 96 02/02/17 11:30 02/02/17 11:30 02/02/17 11:30 02/02/17 11:30 02/02/17 11:30 Internal Medicine: Result - Labs CBC & Chem 7: 02/02/17 05:07 02/02/17 05:07 Labs: Short CBC 02/02/17 Range/Units 05:07 WBC 9.5 (4.3-11.1) K/mcL Hgb 8.7 L D (11.5-15.4) g/dL Hct 28.2 L (35.3-44.9) % Plt Count 168 (140-400) K/mcL Neutrophils # 7.9 (1.6-8.9) K/mcL BMP 02/02/17 05:07 Sodium 138 Potassium 3.6 Chloride 107 Carbon Dioxide 24 BUN 13 Creatinine 1.21 H Glucose 119 H Calcium 8.4 L Urine 02/01/17 Range/Units 19:15 Urine Color Yellow (Yellow) Urine Clarity Cloudy A (Clear) Urine pH 6.0 (5.0-8.0) pH Units Ur Specific [place] 1.017 (1.010-1.025) Urine Protein Negative (Neg-Trace) mg/dL Urine Glucose (UA) Normal (Normal) mg/dL - ABG Interpretation ABG results: PT/INR, D-dimer PT 14.2 Seconds (9.4-12.1) H 02/02/17 05:07 - Attending Attestation Acute blood loss anemia secondary to gastric angioplasties status post catheterization monitor CBC Continue Protonix IV, surgery recommendations appreciated Possible aspiration pneumonitis Allergic to penicillins, discontinue Levaquin start clarithromycin and continue Flagyl day 2 ( Will treat for possible H pylori per Dr Valencia recommendations , Tx will cover aspiration as well) I examined this patient and my medical decision-making was reviewed with the Resident Physician. I agree with the documented findings, disposition and treatment plan as described except to the extent set forth below.
--- NOTE | 2017-02-02 14:03 | General Surgery Progress Note ---
<Ping Adame - Last Filed: 02/02/17 14:09> Date of Encounter: 02/02/17 Time of Encounter: 13:30 - Assessment and Plan (1) Symptomatic anemia Status: Acute Patient presented to the hospital from PCPs office for asymptomatic anemia with an H&H of 6.6/22.1 She has been transfused a total of 4 units of PRBC (last infusion 02/01/17) Hgb- 8.7>7>8.7 EGD and colonoscopy performed 01/31/[address] Valencia. Colonoscopy removed 3 sessile polyps. 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 Visualized bleeding lesions were cauterized by argon beam No reports of ongoing hematochezia, hematemesis, melena Transfusions per primary team We will continue monitor at this time and if patient continues to exhibit signs and symptoms of persistent GI bleed will consider Billroth I/II or Rosie-en -Y with Dr. Valencia (2) Upper GI bleed Status: Acute EGD and colonoscopy performed 01/31/[address] Valencia. Colonoscopy removed 3 sessile polyps. 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 Visualized bleeding lesions were cauterized by argon beam No reports of ongoing hematochezia, hematemesis, melena (3) Angiectasia Status: Chronic We will continue monitor at this time and if patient continues to exhibit signs and symptoms of persistent GI bleed will consider Billroth I/II or Rosie-en-Y with Dr. Valencia Subjective Patient reports: no new complaints, still having pain (epigastric region), tolerating a regular diet, flatus, bowel movement (Dark stools per patient (1 small BM this morning)), fever (Tmax 101.1 yesterday afternoon, no fevers noted today) Objective Vital Signs - Last 8 Hours Temp Pulse Resp BP Pulse Ox 02/02/17 11:30 98.7 F 67 16 109/54 96 02/02/17 07:18 97.6 F 66 17 108/52 95 Intake and Output 02/01/17 02/02/17 02/02/17 23:59 07:59 15:59 Intake Total 708 / 708 100 / 100 360 / 360 Output Total 0 / 0 Balance 708 / 708 100 / 100 360 / 360 Intake: IV Fluids 350 / 350 100 / 100 Protonix 80 MG In 0.9 % Sodium 250 / 250 Chloride 250 ML @ 25 mls/hr IVC .Q10H AJ Rx#:[id number] Flagyl Premix 500 MG/100 ML 500 100 / 100 100 / 100 mg In 100 ml @ 100 mls/hr IVPB Q8HR AJ Rx#:[id number] Oral 80 / 80 0 / 0 360 / 360 Blood Product 278 / 278 Rbcs Leuko Poor As-1 Unit 278 / 278 [id number] Output: Urine 0 / 0 Other: Meal Dinner Breakfast Percent of Meal Consumed 0% 55% # Voids 1 Weight 104.1 kg Blood Glucose* 130 120 131 Patient Weight 02/02/17 23:59 Weight 104.1 kg - General physical appearance well developed, well nourished - Eyes normal ocular movement - ENT normal mucosa, atraumatic, normocephalic - Neck Neck exam: trachea midline - Respiratory normal respiratory effort, clear to auscultation - Cardiovascular Cardiovascular exam: Present: RRR - Abdomen Abdomen: Present: bowel sounds present, soft, tender Abdominal Tenderness: epigastic - Neurologic CN 2-12 grossly intact - Psychiatric oriented to time, oriented to person, oriented to place, speech is normal, memory intact - Labs 02/02/17 05:07 02/02/17 05:07 Diabetes panel 02/02/17 Range/Units 05:07 Sodium 138 (136-145) mEq/L Potassium 3.6 (3.5-4.5) mEq/L Chloride 107 (98-109) mEq/L Carbon Dioxide 24 (19-29) mEq/L BUN 13 (7-20) mg/dL Creatinine 1.21 H (0.57-1.11) mg/dL Glucose 119 H (70-99) mg/dL Calcium 8.4 L (8.6-10.8) mg/dL Calcium panel 02/02/17 Range/Units 05:07 Calcium 8.4 L (8.6-10.8) mg/dL Pituitary panel 02/02/17 Range/Units 05:07 Sodium 138 (136-145) mEq/L Potassium 3.6 (3.5-4.5) mEq/L Chloride 107 (98-109) mEq/L Carbon Dioxide 24 (19-29) mEq/L BUN 13 (7-20) mg/dL Creatinine 1.21 H (0.57-1.11) mg/dL Glucose 119 H (70-99) mg/dL Calcium 8.4 L (8.6-10.8) mg/dL Adrenal panel 02/02/17 Range/Units 05:07 Sodium 138 (136-145) mEq/L Potassium 3.6 (3.5-4.5) mEq/L Chloride 107 (98-109) mEq/L Carbon Dioxide 24 (19-29) mEq/L BUN 13 (7-20) mg/dL Creatinine 1.21 H (0.57-1.11) mg/dL Glucose 119 H (70-99) mg/dL Calcium 8.4 L (8.6-10.8) mg/dL - VTE Reasons for not Prescribing Prophylaxis: Medical contraindication Consult Discharge Plan - Plan Additional Instructions: Please follow-up with your primary care physician as scheduled. Please follow up with Dr. Valencia in 2-3 weeks. Please take your antibiotic until completed. Please return for any new or worsening symptoms. Referrals: Matthew Valencia MD [Partnered Physician] - 02/08/17 2:50 pm () Hayder Chandler DO [Primary Care Provider] - 02/08/17 1:00 pm () Prescriptions: Benzonatate [Tessalon] 100 mg PO TID PRN #20 capsule PRN Reason: Cough Clarithromycin [Biaxin] 500 mg PO BID #25 tablet metroNIDAZOLE [Flagyl] 500 mg PO TID #38 tablet Omeprazole [PriLOSEC] 20 mg PO BIDAC #60 capsule.dr - Attending Attestation For this encounter, I have reviewed the SECURITY MONITOR or PA documentation, treatment plan, and medical decision making; and I have had face to face time with this patient. <Matthew Valencia - Last Filed: 02/06/17 08:31> Date of Encounter: 02/02/17 Objective - Labs 02/03/17 05:20 02/03/17 05:20 - Attending Attestation The patient is seen and evaluated on morning rounds with the resident.. This information is shared with the nurse practitioner. Currently hemoglobin and hematocrit are stable. The patient has known angiodysplasia of the antrum. This has been treated with argon beam coagulation. If the problem recurs or she may require antrectomy with reconstruction Matthew Valencia MD FACS
[2017-02-02] MEDS: metroNIDAZOLE 500 MG TABLET PO SCH ×2 (15:12→23:12)
[2017-02-02] MEDS: Benzonatate 100 MG CAPSULE PO PRN (23:12)
[2017-02-03 05:45] LABS: Eosinophils # 0.2 K/mcL (0.0-0.6); Eosinophils % 3.2 %; Hematocrit 30.3 % (35.3-44.9); Hemoglobin 9.3 g/dL (11.5-15.4); Immature Granulocytes % 0.4 % (0-4); Lymphocytes % 17.7 %; Mean Corpuscular HGB Conc 30.7 g/dL (31.6-35.5); Mean Corpuscular Hemoglobin 26.3 pg (28.0-33.3); Mean Corpuscular Volume 85.6 fL (83.0-100.0); Mean Platelet Volume 10.5 fL (9.4-12.4); Monocytes # 0.4 K/mcL (0.0-1.3); Monocytes % 7.4 %; Neutrophils # 4.1 K/mcL (1.6-8.9); Platelet Count 195 K/mcL (140-400); Red Blood Count 3.54 M/mcL (3.82-4.97); Red Cell Distribution Width 18.3 % (11.5-14.5); Segmented Neutrophils % 71.3 %
[2017-02-03] MEDS: Pantoprazole 40 MG VIAL IVP SCH (05:47)
[2017-02-03 05:57] LABS: Calcium 8.7 mg/dL (8.6-10.8); Magnesium 1.5 mg/dL (1.6-2.6)
[2017-02-03] MEDS: Insulin LISPRO 300 UNITS/3 ML VIAL SQ SCH (08:02)
[2017-02-03] MEDS: metroNIDAZOLE 500 MG TABLET PO SCH (08:04)
[2017-02-03] MEDS: Cyanocobalamin (B-12) 1,000 MCG TABLET PO SCH (08:04)
[2017-02-03] MEDS: Valsartan 160 MG TABLET PO SCH (08:05)
[2017-02-03] MEDS: Ondansetron 4 MG/2 ML VIAL IVP PRN (08:11)
--- NOTE | 2017-02-03 08:29 | Discharge Summary ---
<Wayne Norton - Last Filed: 02/03/17 08:53> Date of Encounter: 02/03/17 Time of Encounter: 08:24 - Discharge Diagnosis (1) Fever Priority: Secondary Status: Resolved Qualifiers: Fever type: unspecified Qualified Code(s): R50.9 - Fever, unspecified (2) Upper GI bleed Priority: Primary Status: Acute (3) Diabetes mellitus Priority: Secondary Status: Chronic Qualifiers: Diabetes mellitus type: type 2 Diabetes mellitus complication status: with unspecified complications Diabetes mellitus director treasurer insulin use: unspecified skilled nursing insulin use status Qualified Code(s): E11.8 - Type 2 diabetes mellitus with unspecified complications (4) Hypertension Priority: Secondary Status: Chronic Qualifiers: Hypertension type: essential hypertension Qualified Code(s): I10 - Essential (primary) hypertension (5) CKD (chronic kidney disease) Priority: Secondary Status: Chronic Qualifiers: Chronic kidney disease stage: stage 3 (moderate) Qualified Code(s): N18.3 - Chronic kidney disease, stage 3 (moderate) (6) Angiectasia Priority: Primary Status: Chronic - Discharge Medications Prescriptions: Benzonatate [Tessalon] 100 mg PO TID PRN #20 capsule PRN Reason: Cough Clarithromycin [Biaxin] 500 mg PO BID #25 tablet metroNIDAZOLE [Flagyl] 500 mg PO TID #38 tablet Omeprazole [PriLOSEC] 20 mg PO BIDAC #60 capsule.dr Home Medications: Acetaminophen [Tylenol] 500 mg PO Q6HR PRN 10/23/15 [History] Chlorthalidone 25 mg PO DAILY 10/23/15 [History] Citalopram Hydrobromide [Citalopram HBr] 40 mg PO DAILY 10/23/15 [History] Cranberry Fruit Extract [Cranberry] 425 mg PO DAILY 10/23/15 [History] Cyanocobalamin (Vitamin B-12) [Vitamin B12] 1,000 mcg PO DAILY 10/23/15 [History ] Insulin Glargine,Hum.rec.anlog [Lantus Solostar] 39 unit SQ HS 10/23/15 [History ] Nitroglycerin [Nitrostat] 0.4 mg SL AD PRN 10/23/15 [History] Simvastatin [Zocor] 40 mg PO HS 10/23/15 [History] Valsartan [Diovan] 160 mg PO DAILY 10/23/15 [History] Benzonatate [Tessalon] 100 mg PO TID PRN #20 capsule 02/03/17 [Rx] Clarithromycin [Biaxin] 500 mg PO BID #25 tablet 02/03/17 [Rx] Omeprazole [PriLOSEC] 20 mg PO BIDAC #60 capsule. 02/03/17 [Rx] metroNIDAZOLE [Flagyl] 500 mg PO TID #38 tablet 02/03/17 [Rx] Allergies/Adverse Reactions: 3 Allergy/AdvReac Type Severity Reaction Status Date / Time Sulfa (Sulfonamide Allergy Swelling Verified 10/23/15 11:35 Antibiotics) of Lip/Tongue/Throat codeine AdvReac Rash Verified 10/23/15 11:35 Penicillins [PCN] AdvReac Rash Verified 10/23/15 11:35 Date of admission: 01/30/17 15:44 Primary care physician: Hayder Chandler DO Consults: 01/30/17 18:53 Consult to Surgery [CONS] Routine Consulting Provider: [facility] Reason for Consult: GI bleed Call Completed: Yes 01/31/17 06:46 Consult to PICC team [Consult to Invasive Line Access Team] [CONS] Routine Reason for Consult: EPIV insertion Line Type: EPIV PICC line indications: Limited vascular access - Patient Status Disposition: Home, Self-Care Condition: Good Functional capacity at discharge: independent ambulation Overall status at discharge: patient is progressing back to baseline - Discharge Instructions Follow Up With: Matthew Vaelncia MD [Partnered Physician] - 02/08/17 2:50 pm () Hayder Chandler DO [Primary Care Provider] - 02/08/17 1:00 pm () Additional Instructions: Please follow-up with your primary care physician as scheduled. Please follow up with Dr. Valencia in 2-3 weeks. Please take your antibiotic until completed. Please return for any new or worsening symptoms. - Diet and Activity Activity: increase activity as tolerated Diet: advance to your usual diet Interval History: Patient seen and examined at bedside. She states that she feels pretty good today. She states that her chronic abdominal pain is stable, she denies nausea , vomiting. She denies fever, chills. She is eating and drinking well. Hospital course: Ms. Pacheco is a 72 year old female with history of hypertension, type 2 diabetes, angiodysplasia of the stomach presents with abnormal labs. She was found to be anemic on outpatient labs. Patient was admitted and underwent upper and lower endoscopy and found to have angiodysplasia bleeding of the gastric antrum. This was her second occurrence, the first was back in May. This was cauterized by Dr. Valencia. The day after the procedure the patient had fevers in the morning. Investigation into this revealed no clear source of fevers. This resolved later in the afternoon and the patient has been afebrile for the last 2 days. In discussion with surgeon it was felt that this could possibly be related to H. pylori infection so the patient was placed on triple therapy with PPI, metronidazole, clarithromycin. The patient's hemoglobin remained stable post-procedurally and she did not have any evidence of active bleeding. The patient will be discharged home in stable condition. - Time Spent with Patient Total time spent providing and/or coordinating discharge services: 40 minutes - Constitutional Vitals: Temp Pulse Resp BP Pulse Ox 97.6 F 70 16 101/63 95 02/03/17 07:34 02/03/17 07:34 02/03/17 07:34 02/03/17 07:34 02/03/17 07:34 General appearance: Present: A&O X 3, pleasant, no acute distress - Respiratory Respiratory exam: Present: CTAB. Absent: rales, rhonchi, wheezes - Cardiovascular Cardiovascular exam: Present: RRR. Absent: gallop, rubs, systolic murmur - GI/Abdominal GI/Abdominal exam: Present: normal bowel sounds, soft, tenderness (epigastric, unchanged). Absent: distended, firm, guarding - Extremities Exam Extremities exam: Present: pedal edema (trace), warm. Absent: tenderness - Neurological Exam Neurological exam: Present: alert, CN II-XII intact, oriented X3, no focal deficits - VTE Reasons for not Prescribing Prophylaxis: Medical contraindication <Abhay Sánchez - Last Filed: 02/03/17 11:15> Date of Encounter: 02/03/17 Date of admission: 01/30/17 15:44 Primary care physician: Hayder Chandler DO Consults: 01/30/17 18:53 Consult to Surgery [CONS] Routine Consulting Provider: [facility] Reason for Consult: GI bleed Call Completed: Yes 01/31/17 06:46 Consult to PICC team [Consult to Invasive Line Access Team] [CONS] Routine Reason for Consult: EPIV insertion Line Type: EPIV PICC line indications: Limited vascular access Hospital course: Ms. Pacheco is a 72 year old female - Time Spent with Patient Total time spent providing and/or coordinating discharge services: - Constitutional Vitals: Temp Pulse Resp BP Pulse Ox 97.6 F 70 16 101/63 95 02/03/17 07:34 02/03/17 07:34 02/03/17 07:34 02/03/17 07:34 02/03/17 07:34 - Attending Attestation Acute blood loss anemia secondary to gastric angioplasties status post catheterization Continue PPI Possible aspiration pneumonitis Will treat for possible H pylori per Dr Valencia recommendations , Tx will cover aspiration as well Follow-up with Dr. Stover within the next week I examined this patient and my medical decision-making was reviewed with the Resident Physician. I agree with the documented findings, disposition and treatment plan as described except to the extent set forth below. Possible aspiration pneumonitis
--- NOTE | 2017-02-03 08:50 | General Surgery Progress Note ---
<Grey Ortega - Last Filed: 02/03/17 09:24> Date of Encounter: 02/03/17 Time of Encounter: 06:45 - Assessment and Plan (1) Upper GI bleed Status: Acute -Patient presented from PCPs office for asymptomatic anemia with an H&H of 6.6/ 22.1 - Has received a total of 4 units of packed red blood cells - H&H stable his morning at 9.3/30.3, improved from yesterday - No further episodes of GI bleed. Asymptomatic at this time - Patient is showing no further signs of bleeding at this time, H&H is stable. Will not need to perform surgery at this time. - She remained stable and we will sign off at this time. (2) Severe anemia Status: Acute As above GI bleed (3) Hypertension Status: Chronic Qualifiers: Hypertension type: essential hypertension Qualified Code(s): I10 - Essential (primary) hypertension (4) DVT prophylaxis Status: Acute - SCDs given bleeding, we will hold off on heparin Subjective Patient reports: no new complaints, feels better, pain is less, tolerating a regular diet, voiding w/o difficulty, flatus, bowel movement Narrative: Patient seen and examined at bedside this morning. She states that she is feeling well aside from some minor soreness which she believes is secondary to coughing and retching 2 nights ago. She states the pain is less. She denies seeing any blood in vomit or stool. Pain is under control. Denies any symptoms of nausea, vomiting this morning. She states she has no complaints and feels that she is ready go at this time. Objective Vital Signs - Last 8 Hours Temp Pulse Resp BP Pulse Ox 02/03/17 07:34 97.6 F 70 16 101/63 95 02/03/17 04:15 99.0 F 78 18 119/54 94 Intake and Output 02/02/17 02/03/17 02/03/17 23:59 07:59 15:59 Intake Total 360 / 360 120 / 120 Balance 360 / 360 120 / 120 Intake: Oral 360 / 360 120 / 120 Other: Meal Dinner Percent of Meal Consumed 5% # Voids 1 2 # Bowel Movements 1 Weight 102.2 kg Blood Glucose* 142 107 Patient Weight 02/03/17 23:59 Weight 102.2 kg - General physical appearance well developed, well nourished, no distress - Respiratory normal expansion, normal respiratory effort, clear to auscultation - Cardiovascular Cardiovascular exam: Present: RRR, no murmurs/rubs/gallops - Abdomen Abdomen: Present: bowel sounds present, soft, tender (Mild to palpation) Abdominal Tenderness: epigastic, diffusely - Labs 02/03/17 05:20 02/03/17 05:20 Diabetes panel 02/03/17 Range/Units 05:20 Sodium 140 (136-145) mEq/L Potassium 4.0 (3.5-4.5) mEq/L Chloride 106 (98-109) mEq/L Carbon Dioxide 26 (19-29) mEq/L BUN 20 (7-20) mg/dL Creatinine 1.19 H (0.57-1.11) mg/dL Glucose 109 H (70-99) mg/dL Calcium 8.7 (8.6-10.8) mg/dL Calcium panel 02/03/17 Range/Units 05:20 Calcium 8.7 (8.6-10.8) mg/dL Pituitary panel 02/03/17 Range/Units 05:20 Sodium 140 (136-145) mEq/L Potassium 4.0 (3.5-4.5) mEq/L Chloride 106 (98-109) mEq/L Carbon Dioxide 26 (19-29) mEq/L BUN 20 (7-20) mg/dL Creatinine 1.19 H (0.57-1.11) mg/dL Glucose 109 H (70-99) mg/dL Calcium 8.7 (8.6-10.8) mg/dL Adrenal panel 02/03/17 Range/Units 05:20 Sodium 140 (136-145) mEq/L Potassium 4.0 (3.5-4.5) mEq/L Chloride 106 (98-109) mEq/L Carbon Dioxide 26 (19-29) mEq/L BUN 20 (7-20) mg/dL Creatinine 1.19 H (0.57-1.11) mg/dL Glucose 109 H (70-99) mg/dL Calcium 8.7 (8.6-10.8) mg/dL - VTE Reasons for not Prescribing Prophylaxis: Medical contraindication Consult Discharge Plan - Plan Additional Instructions: Please follow-up with your primary care physician as scheduled. Please follow up with Dr. Valencia in 2-3 weeks. Please take your antibiotic until completed. Please return for any new or worsening symptoms. Referrals: Matthew Valencia MD [Partnered Physician] - 02/08/17 2:50 pm () Hayder Chandler DO [Primary Care Provider] - 02/08/17 1:00 pm () Prescriptions: Benzonatate [Tessalon] 100 mg PO TID PRN #20 capsule PRN Reason: Cough Clarithromycin [Biaxin] 500 mg PO BID #25 tablet metroNIDAZOLE [Flagyl] 500 mg PO TID #38 tablet Omeprazole [PriLOSEC] 20 mg PO BIDAC #60 capsule.dr <Matthew Valencia - Last Filed: 02/06/17 08:34> Date of Encounter: 02/03/17 Objective - Labs 02/03/17 05:20 02/03/17 05:20 - Attending Attestation I examined this patient and my medical decision-making was reviewed with the Resident Physician. I agree with the documented findings, disposition and treatment plan as described except to the extent set forth below. The patient is seen and evaluated on morning rounds. Her hemoglobin and hematocrit are stable. We will sign off at this time. She should be maintained on proton pump inhibitor with possibly the addition of Carafate.
[2017-02-03 11:18] VITALS: BP 128/69
== END 2017-02-03 13:53 | disposition home or self-care (01) | DRG 377 ==
LOC: 2ANU 10:39 → EMEROO 10:39 → 2ANU 14:09 → SUATTDRO 15:44
PROVIDERS: ADMIT Hospitalist; ATTEND Internal Medicine

== ENCOUNTER 2017-08-14 15:31 | Inpatient (IN) ==
[2017-08-14 16:00] LABS: Hematocrit 23.8 % (35.3-44.9); Hemoglobin 7.5 g/dL (11.5-15.4); Mean Corpuscular HGB Conc 31.5 g/dL (31.6-35.5); Mean Corpuscular Hemoglobin 28.7 pg (28.0-33.3); Mean Corpuscular Volume 91.2 fL (83.0-100.0); Mean Platelet Volume 10.2 fL (9.4-12.4); Platelet Count 296 K/mcL (140-400); Red Blood Count 2.61 M/mcL (3.82-4.97); Red Cell Distribution Width 13.5 % (11.5-14.5)
--- NOTE | 2017-08-14 16:13 | Emergency Department Note ---
Disposition Clinical Impression: Anemia Qualifiers: Iron deficiency anemia type: chronic blood loss Disposition: Admitted As Inpatient Condition: Fair Forms: ED Satisfaction Letter Time of Disposition: 17:44 Dizziness HPI - General Chief Complaint: ED Dizziness Stated Complaint: Dizziness,weakness,MICH Time Seen by Provider: 08/14/17 15:44 Source: patient Mode of arrival: ambulatory Limitations: no limitations Nursing Notes Reviewed: Yes Vital Signs Reviewed: Yes - History of Present Illness HPI Narrative: 72yo female past medical history of hypertension, hyperlipidemia, diabetes, CKD stage III presented to [facility] complaining of lightheadedness and fall. She reported that she has had dizziness for about a week now and that today it was worsened to the point without she was walking she fell and hit her head. She did not lose consciousness. Currently her head hurts. Additionally, she has had shortness of breath, cough, stools a little darker She denies fever, chills , chest pain, nausea, vomiting, abdominal pain, hematechezia. She went on vacation last week but it was only a [address] and they took a resting break. She denied history of DVT or PE. Of note, she was admitted for symptomatic anemia with upper GIB on 01/30/2017. EGD and colonoscopy performed on 01/31/[address] Valencia. Colonoscopy removed 3 sessile polyps. 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 She had received a total of 4 PRBC transfusions. - Related Data Allergies Allergy/AdvReac Type Severity Reaction Status Date / Time Sulfa (Sulfonamide Allergy Swelling Verified 10/23/15 11:35 Antibiotics) of Lip/Tongue/Throat codeine AdvReac Rash Verified 10/23/15 11:35 Penicillins [PCN] AdvReac Rash Verified 10/23/15 11:35 All systems ED: reviewed and negative except as stated. Review of Systems: As Per HPI Constitutional: Reports: other (Lightheaded). Denies: fever, chills Eyes: Denies: vision change Cardiovascular: Denies: chest pain, palpitations Respiratory: Reports: cough, dyspnea. Denies: wheezes Gastrointestinal: Reports: melena. Denies: abdominal pain, nausea, vomiting, diarrhea, hematochezia Genitourinary: Denies: urgency Integumentary: Denies: rash Neurological: Reports: headache Psychiatric: Denies: anxiety Endocrine: Denies: fatigue Hematological/Lymphatic: Denies: easy bleeding Past Medical History - Past Medical History Attestation: Yes The following information was validated with the patient. Source: patient Medical history: Reports: arthritis, diabetes, hyperlipidemia, hypertension, renal disease Surgical history: Reports: cataract, cholecystectomy, hysterectomy, orthopedic, other Psychiatric history: Reports: no psych history - Social History Smoking Status: Former smoker Smokeless Tobacco Status: No Alcohol use: Reports: none Drug use: Reports: none Physical Exam - General Limitations: no limitations General appearance: alert, in no apparent distress - Head Head exam: atraumatic, normocephalic - Eye Eye exam: Absent: normal appearance, nystagmus - Neck Neck exam: Present: normal inspection, tenderness - Respiratory Respiratory exam: Present: normal lung sounds bilaterally. Absent: wheezes - Cardiovascular Cardiovascular exam: Present: regular rate, normal rhythm - Abdominal Exam Abdominal exam: Present: soft, Non-Tender, normal bowel sounds. Absent: guarding - Extremities Exam Extremities exam: Present: normal inspection. Absent: tenderness - Neurological Exam Neurological exam: Present: alert, oriented X3 - Psychiatric Psychiatric exam: Present: normal affect, normal mood - Skin Skin exam: Present: dry, intact Course Course Narrative: 72yo female past medical history of hypertension, hyperlipidemia, diabetes, CKD stage III presented to [facility] complaining of lightheadedness and fall. She reported that she has had dizziness for about a week now and that today it was worsened to the point without she was walking she fell and hit her head. She did not lose consciousness. Additionally, she has had shortness of breath, cough , stools a little darker She denies fever, chills, chest pain, nausea, vomiting , abdominal pain, hematechezia. She reports that back in January her hemoglobin was still a she had to have blood and iron transfusions. She went on vacation last week but it was only a [address] and they took a resting break and has no history of blood clots. Differential includes G.I. bleed, anemia, pneumonia, ACS. Will order a CBC, CMP, PT/INR troponin, EKG, head and cervical spine CT, stool occult test. Unlikely to be a PE as wells criteria is a 0. - Reevaluation(s) Reevaluation #1: Hemoglobin 7.5, typed and screened, ordered 2 units of packed red blood cells. Head and neck CTA negative for acute bleed or fracture. Time: 17:36 Vital Signs Temperature 99.1 F 08/14/17 15:32 Pulse Rate 74 08/14/17 15:32 Respiratory Rate 24 08/14/17 15:32 Blood Pressure 125/55 08/14/17 15:32 O2 Sat by Pulse Oximetry 100 08/14/17 15:32 Temperature 99.1 F 08/14/17 15:51 Pulse Rate 74 08/14/17 15:51 Respiratory Rate 24 08/14/17 15:51 Blood Pressure 125/55 08/14/17 15:51 O2 Sat by Pulse Oximetry 100 08/14/17 15:51 Oxygen Delivery Oxygen Delivery Room Air Dizziness - MDM Narrative Medical decision making narrative: 72yo female past medical history of hypertension, hyperlipidemia, diabetes, CKD stage III presented to [facility] complaining of lightheadedness and fall. She reported that she has had dizziness for about a week now and that today it was worsened to the point without she was walking she fell and hit her head. She did not lose consciousness. Additionally, she has had shortness of breath, cough, stools a little darker She denies fever, chills, chest pain, nausea, vomiting, abdominal pain, hematechezia. Hemoglobin was 7.5, CMP unremarkable demonstrated stable CKD troponin negative. Head and cervical CT unremarkable. She is having symptomatic anemia likely upper G.I. 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 Spoke with Dr. Watters of gastroenterology whom recommended admission for endoscopy tomorrow. The patient was typed and screened and ordered 2 units of packed red blood cells, Protonix bolus and drip. Dr. Becker of the hospitalist accepted admission. - Differential Diagnosis Likely: other occult medical condition - Medical Records Medical records reviewed: Yes I reviewed the patient's medical records. - Lab Data Lab results reviewed: Yes I reviewed the patient's lab results. Result diagrams: 08/14/17 15:36 Lab Results 08/14/17 08/14/17 08/14/17 Range/Units 15:36 15:36 15:36 WBC 5.7 (4.3-11.1) K/mcL RBC 2.61 L (3.82-4.97) M/mcL Hgb 7.5 L (11.5-15.4) g/dL Hct 23.8 L (35.3-44.9) % MCV 91.2 (83.0-100.0) fL MCH 28.7 (28.0-33.3) pg MCHC 31.5 L (31.6-35.5) g/dL RDW 13.5 (11.5-14.5) % Plt Count 296 (140-400) K/mcL MPV 10.2 (9.4-12.4) fL Troponin I < 0.03 (< 0.04) ng/mL B-Natriuretic Peptide 17 (Less than 100) pg/mL - Radiology Data Radiology results reviewed: Yes I reviewed the patient's radiology results. Chest X-Ray 08/14/17 15:36 IMPRESSION: No acute cardiopulmonary abnormality. D/ / Stanislaw Owen / Stanislaw Owen Interpreting Provider: Stanislaw Owen Head CT 08/14/17 16:07 IMPRESSION: No acute intracranial abnormality. D/ / Leonard Duenas MD / Leonard Duenas MD Interpreting Provider: Leonard Duenas MD Cervical Spine CT 08/14/17 16:12 IMPRESSION: No acute abnormality of the cervical spine. D/ / Stanislaw Owen / Stanislaw Owen Interpreting Provider: Stanislaw Owen - EKG Data EKG attestation: Yes I reviewed and interpreted this EKG. EKG results narrative: EKG HR 73, no ST or T wave changes. No acute ischemia or IN. OK 126, QRS 89, QT/QTC 410/436 Critical Care Time Critical Care Time: No
[2017-08-14 16:21] LABS: Troponin I < 0.03 ng/mL (< 0.04)
[2017-08-14 16:54] LABS: Alanine Aminotransferase 16 Units/L (7-52); Albumin 3.8 g/dL (3.5-5.7); Albumin/Globulin Ratio 1.2 (1.1-2.2); Alkaline Phosphatase 79 Units/L (34-104); Aspartate Amino Transferase 28 Units/L (13-39); BUN/Creatinine Ratio 19 (6-26); Bilirubin,Total 0.3 mg/dL (0.3-1.0); Blood Urea Nitrogen 38 mg/dL (8-23); Calcium 9.3 mg/dL (8.6-10.3); Carbon Dioxide 22 mEq/L (23-29); Chloride 104 mEq/L (98-107); Globulin 3.3 g/dL (2.4-3.5); Glucose 138 mg/dL (70-105); Osmolality,Calculated 295 (280-300); Potassium 3.7 mEq/L (3.5-5.1); Sodium 137 mEq/L (136-145); Total Protein 7.1 g/dL (6.4-8.9); eGFR For African Americans 29 (> 60); eGFR For Non-African Americans 24 (> 60)
[2017-08-14 17:10] LABS: Prothrombin Time 11.1 Seconds (9.4-12.1)
[2017-08-14] MEDS ORDERED: Pantoprazole 40 MG VIAL IVP ONE (17:21)
--- NOTE | 2017-08-14 17:29 | Emergency Department Note ---
Disposition Clinical Impression: Upper GI bleed, Symptomatic anemia, Dizziness Disposition: Admitted As Inpatient Forms: ED Satisfaction Letter General Adult HPI - General Chief complaint: ED Dizziness Stated complaint: Dizziness,weakness,MICH Time Seen by Provider: 08/14/17 15:44 Source: patient Mode of arrival: ambulatory Limitations: no limitations - History of Present Illness Pain Scale: 3 - Related Data Home Medications Medication Instructions Recorded Confirmed Acetaminophen [Tylenol] 500 mg PO Q6HR PRN 10/23/15 01/30/17 Chlorthalidone 25 mg PO DAILY 10/23/15 01/30/17 Citalopram Hydrobromide 40 mg PO DAILY 10/23/15 01/30/17 [Citalopram HBr] Cranberry Fruit Extract [Cranberry] 425 mg PO DAILY 10/23/15 01/30/17 Cyanocobalamin (Vitamin B-12) 1,000 mcg PO DAILY 10/23/15 01/30/17 [Vitamin B12] Insulin Glargine,Hum.rec.anlog 39 unit SQ HS 10/23/15 01/30/17 [Lantus Solostar] Nitroglycerin [Nitrostat] 0.4 mg SL AD PRN 10/23/15 01/30/17 Simvastatin [Zocor] 40 mg PO HS 10/23/15 01/30/17 Valsartan [Diovan] 160 mg PO DAILY 10/23/15 01/30/17 Previous Rx's Medication Instructions Recorded Benzonatate [Tessalon] 100 mg PO TID PRN #20 capsule 02/03/17 Clarithromycin [Biaxin] 500 mg PO BID #25 tablet 02/03/17 Omeprazole [PriLOSEC] 20 mg PO BIDAC #60 capsule. 02/03/17 metroNIDAZOLE [Flagyl] 500 mg PO TID #38 tablet 02/03/17 Allergies Allergy/AdvReac Type Severity Reaction Status Date / Time Sulfa (Sulfonamide Allergy Swelling Verified 10/23/15 11:35 Antibiotics) of Lip/Tongue/Throat codeine AdvReac Rash Verified 10/23/15 11:35 Penicillins [PCN] AdvReac Rash Verified 10/23/15 11:35 Constitutional: Reports: other (Lightheaded). Denies: fever, chills Eyes: Denies: vision change Cardiovascular: Denies: chest pain, palpitations Respiratory: Reports: cough, dyspnea. Denies: wheezes Gastrointestinal: Reports: melena. Denies: abdominal pain, nausea, vomiting, diarrhea, hematochezia Genitourinary: Denies: urgency Integumentary: Denies: rash Neurological: Reports: headache Psychiatric: Denies: anxiety Endocrine: Denies: fatigue Hematological/Lymphatic: Denies: easy bleeding Past Medical History - Past Medical History Medical history: Reports: arthritis, diabetes, hyperlipidemia, hypertension, renal disease Surgical history: Reports: cataract, cholecystectomy, hysterectomy, orthopedic, other Psychiatric history: Reports: no psych history - Social History Smoking Status: Former smoker Smokeless Tobacco Status: No Alcohol use: Reports: none Drug use: Reports: none Physical Exam - General Limitations: no limitations General appearance: alert, in no apparent distress Course Vital Signs Temperature 99.1 F 08/14/17 15:32 Pulse Rate 74 08/14/17 15:32 Respiratory Rate 24 08/14/17 15:32 Blood Pressure 125/55 08/14/17 15:32 O2 Sat by Pulse Oximetry 100 08/14/17 15:32 Temperature 99.1 F 08/14/17 15:51 Pulse Rate 74 08/14/17 15:51 Respiratory Rate 24 08/14/17 15:51 Blood Pressure 125/55 08/14/17 15:51 O2 Sat by Pulse Oximetry 100 08/14/17 15:51 Oxygen Delivery Oxygen Delivery Room Air Medical Decision Making - Lab Data Result diagrams: 08/14/17 15:36 08/14/17 15:36 Lab Results 08/14/17 08/14/17 08/14/17 Range/Units 15:36 15:36 15:36 WBC 5.7 (4.3-11.1) K/mcL RBC 2.61 L (3.82-4.97) M/mcL Hgb 7.5 L (11.5-15.4) g/dL Hct 23.8 L (35.3-44.9) % MCV 91.2 (83.0-100.0) fL MCH 28.7 (28.0-33.3) pg MCHC 31.5 L (31.6-35.5) g/dL RDW 13.5 (11.5-14.5) % Plt Count 296 (140-400) K/mcL MPV 10.2 (9.4-12.4) fL PT (9.4-12.1) Seconds INR Sodium 137 (136-145) mEq/L Potassium 3.7 (3.5-5.1) mEq/L Chloride 104 (98-107) mEq/L Carbon Dioxide 22 L (23-29) mEq/L BUN 38 H (8-23) mg/dL Creatinine 2.02 H (0.60-1.20) mg/dL Est GFR ( Amer) 29 L (> 60) Est GFR (Non-Af Amer) 24 L (> 60) BUN/Creatinine Ratio 19 (6-26) Glucose 138 H (70-105) mg/dL Calculated Osmolality 295 (280-300) Calcium 9.3 (8.6-10.3) mg/dL Total Bilirubin 0.3 (0.3-1.0) mg/dL AST 28 (13-39) Units/L ALT 16 (7-52) Units/L Alkaline Phosphatase 79 (34-104) Units/L Troponin I < 0.03 (< 0.04) ng/mL B-Natriuretic Peptide 17 (Less than 100) pg/mL Serum Total Protein 7.1 (6.4-8.9) g/dL Albumin 3.8 (3.5-5.7) g/dL Globulin 3.3 (2.4-3.5) g/dL Albumin/Globulin Ratio 1.2 (1.1-2.2) 08/14/17 Range/Units 15:49 WBC (4.3-11.1) K/mcL RBC (3.82-4.97) M/mcL Hgb (11.5-15.4) g/dL Hct (35.3-44.9) % MCV (83.0-100.0) fL MCH (28.0-33.3) pg MCHC (31.6-35.5) g/dL RDW (11.5-14.5) % Plt Count (140-400) K/mcL MPV (9.4-12.4) fL PT 11.1 (9.4-12.1) Seconds INR 1.0 Sodium (136-145) mEq/L Potassium (3.5-5.1) mEq/L Chloride (98-107) mEq/L Carbon Dioxide (23-29) mEq/L BUN (8-23) mg/dL Creatinine (0.60-1.20) mg/dL Est GFR ( Amer) (> 60) Est GFR (Non-Af Amer) (> 60) BUN/Creatinine Ratio (6-26) Glucose (70-105) mg/dL Calculated Osmolality (280-300) Calcium (8.6-10.3) mg/dL Total Bilirubin (0.3-1.0) mg/dL AST (13-39) Units/L ALT (7-52) Units/L Alkaline Phosphatase (34-104) Units/L Troponin I (< 0.04) ng/mL B-Natriuretic Peptide (Less than 100) pg/mL Serum Total Protein (6.4-8.9) g/dL Albumin (3.5-5.7) g/dL Globulin (2.4-3.5) g/dL Albumin/Globulin Ratio (1.1-2.2) Critical Care Time Critical Care Time: Yes Total Critical Care Time: 35 Attestation: Total critical care time of 35 minutes spent in medical management of symptomatic anemia requiring transfusion in consultation with endoscopy. Attestation Statement - Attestation Attestation: I examined this patient and my medical decision-making was reviewed with the Resident Physician. I agree with the documented findings, disposition and treatment plan as described except to the extent set forth below. 72-year-old female in presented to the emergency room for dizziness and weakness and shortness of breath. She was found to be anemic at around 7 with her hemoglobin. Suspect secondary to an upper GI bleed. She had this upper GI bleed back in January in which they found some angiodysplastic lesions in the gastric antrum. I suspect these are bleeding again. She had fallen today from her dizziness and weakness. CT of the head and neck were negative. We will start her on a Protonix drip and consult with endoscopy. They will keep her nothing by mouth after midnight and scope her tomorrow. She will be started on IV fluids with her Protonix and we will cross her for 2 units of blood.
[2017-08-14] MEDS ORDERED: Naloxone 0.4 MG/ML INJ IVP PRN (20:14)
[2017-08-14] MEDS ORDERED: *HR* Dextrose 50 % in Water (Syg) 50 ML SYRINGE IVP PRN (20:21)
[2017-08-14] MEDS ORDERED: Dextrose Gel 15 GM/37.5 ML TUBE PO PRN ×2 (20:21)
[2017-08-14] MEDS ORDERED: D5% in Water 1,000 ML IVC PRN (20:21)
[2017-08-14] MEDS: Pantoprazole 40 MG in 0.9 % Sodium Chloride Mini Bag 100 ML IVC SCH ×2 (20:24→21:31)
--- NOTE | 2017-08-14 20:30 | Internal Med History&Physical ---
Date of Encounter: 08/14/17 Time of Encounter: 19:00 Internal Medicine - H&P: HPI Chief complaint: Dizziness Admitted From: Home Plans for Post Hospital Care: Home History of present illness: Ms. Pacheco is a 72 year old female present to ER for dizziness and syncope. Past medical history is significant for diabetes, hypertension, CAD status 3, history of GI bleed in last January. Patient has generalized weakness, increased the shortness of breath for about 1 week. Patient also noticed black stool in last week. Patient has nausea but no vomiting. Today around 1:30 PM patient has dizziness and syncope. Patient had hit her head during syncope. Patient denies tongue bite or urinary/fecal incontinence. Patient has intermittent chest pain which she said is chronic. In the emergency room, she was a found hemoglobin low to 7.5. Patient was considered GI bleed and was placed blood transfusion. GI was counseled by ER. Patient was admitted for further management. I have discussed CODE STATUS with this patient. Patient clearly told me she does not want CPR or intubation but accepted the temporarily intubation during surgery/anesthesia. DNR DNI was placed per patient's wish. Past Med Surg Social Fam HX - Past Medical History Medical history: arthritis, diabetes, hyperlipidemia, hypertension, renal disease Additional medical history: anemia Psychiatric history: no psych history - Past Surgical History Surgical History: cataract, cholecystectomy, hysterectomy, orthopedic, other Additional surgical history: lumpectomy - egd - colonoscopy - Social History Smoking Status: Former smoker Smokeless Tobacco Status: No Alcohol use: none Drug use: none - Family History Son Adopted: No Family Member Ethnicity: Non- Living Status: Hx Family Cardiac Disorders: Yes Hx Family Respiratory Disorders: Yes Hx Family Cancer: Yes (HAD SKIN CA REMOVED RECENTLY) Hx Family GI Disorders: No Hx Family Endocrine Disorder: Yes Hx Family Neuromuscular Disorders: No Hx Family Neurologic Disorders: Yes Hx Family HEENT Disorders: No Hx Family Autoimmune Disorders: No Mother Adopted: No Family Member Ethnicity: Non- Living Status: Hx Family Cardiac Disorders: Yes Hx Family Respiratory Disorders: Yes Hx Family Cancer: Yes (HAD SKIN CA REMOVED RECENTLY) Hx Family GI Disorders: No Hx Family Endocrine Disorder: Yes Hx Family Neuromuscular Disorders: No Hx Family Neurologic Disorders: Yes Hx Family HEENT Disorders: No Hx Family Autoimmune Disorders: No Internal Medicine - H&P: Meds Chlorthalidone [Chlorthalidone] 25 mg PO DAILY 08/14/17 [History] Citalopram Hydrobromide [Citalopram HBr] 40 mg PO DAILY 08/14/17 [History] Insulin Degludec [Tresiba Flextouch U-200] 40 units SQ QAM 08/14/17 [History] Multivitamin [One Daily Essential] 1 tab PO DAILY 08/14/17 [History] Omeprazole [PriLOSEC] 20 mg PO BID 08/14/17 [History] Simvastatin [Zocor] 40 mg PO HS 08/14/17 [History] Sucralfate [Carafate] 1 gm PO BID 08/14/17 [History] Valsartan [Valsartan] 160 mg PO DAILY 08/14/17 [History] traZODone [TraZODone] 50 mg PO HS 08/14/17 [History] 3 Allergy/AdvReac Type Severity Reaction Status Date / Time Sulfa (Sulfonamide Allergy Swelling Verified 08/14/17 18:06 Antibiotics) of Lip/Tongue/Throat codeine AdvReac Rash Verified 08/14/17 18:06 Penicillins [PCN] AdvReac Rash Verified 08/14/17 18:06 All Systems PM: A 10-system review of systems was performed and is negative for pertinent findings except as documented above in the HPI. - Constitutional Vitals: Temp Pulse Resp BP Pulse Ox 98.3 F 69 14 134/54 100 08/14/17 19:31 08/14/17 19:31 08/14/17 19:31 08/14/17 19:31 08/14/17 19:31 General appearance: Present: mild distress, A&O X 3, answers questions appropriately - Head Head exam: Present: atraumatic, normocephalic - Eye Eye exam: Present: PERRL, conjuntiva pink, sclera anicteric Pupils: Present: PERRL - Neck Neck exam general surgery: Present: supple, trachea midline. Absent: lymphadenopathy - Respiratory Respiratory exam: Present: CTAB. Absent: accessory muscle use, rales, rhonchi, wheezes - Cardiovascular Cardiovascular exam: Present: RRR, +S1, +S2. Absent: diastolic murmur, gallop, rubs, systolic murmur - GI/Abdominal GI/Abdominal exam: Present: normal bowel sounds, soft, tenderness (Mild tenderness on bilateral flank area, no rebound or guarding.), no peritoneal signs. Absent: distended - Extremities Exam Extremities exam: Present: warm, radial pulses palpable and symmetrical. Absent : calf tenderness, cyanotic, pedal edema - Neurological Exam Neurological exam: Present: CN II-XII intact, oriented X3, no focal deficits. Absent: pronater drift, facial droop, speech deficit - Skin Skin exam: Present: dry, intact Internal Med - H&P Results - Labs CBC & Chem 7: 08/14/17 15:36 08/14/17 15:36 - Assessment and plan (1) Syncope Current Visit: Yes Status: Acute Assessment and plan: Patient has dizziness and syncope today. Head CT negative in the emergency room. Highly suspect syncope is caused by GI bleed and hypovolemia. However other cardio/neuro etiology need to be rule out. - Place patient on continuous cardiac monitoring. - As patient complaint intermittent chest pain, will track 3 sets of troponin - Echo and duplex carotid to rule out cardiovascular abnormality. - GI consult for GI bleed - Closely monitor vitals and H&H Qualifiers: Syncope type: unspecified Qualified Code(s): R55 - Syncope and collapse (2) Anemia Current Visit: Yes Status: Acute Assessment and plan: Most likely due to GI bleeding. Plan to give patient 2 units of PRBC. Closely monitor H&H Qualifiers: Iron deficiency anemia type: chronic blood loss Qualified Code(s): D50.0 - Iron deficiency anemia secondary to blood loss (chronic) (3) Upper GI bleed Current Visit: Yes Status: Acute Assessment and plan: Highly suspect GI bleed. - Place patient on nothing by mouth, IV fluid, IV PPI drip - Closely monitor vitals and H&H - GI consult (4) DVT prophylaxis Current Visit: No Status: Acute Assessment and plan: EPCDs (5) Shortness of breath Current Visit: No Status: Acute Assessment and plan: Most likely due to anemia. Lung is clear no wheezing. Check echocardiogram. Chest x-ray has been done, unremarkable (6) CKD (chronic kidney disease) Current Visit: No Status: Chronic Assessment and plan: Mild elevated creatinine level from baseline. Probably due to hypovolemia cause by GI bleed. Continue IV fluid and a follow-up renal function. Avoid the nephrotoxic medications. Qualifiers: Chronic kidney disease stage: stage 3 (moderate) Qualified Code(s): N18.3 - Chronic kidney disease, stage 3 (moderate) (7) Diabetes mellitus Current Visit: No Status: Chronic Assessment and plan: Place patient on sliding scale insulin coverage. 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 Hold hypertension medications because of suspected GI bleed. Qualifiers: Hypertension type: essential hypertension Qualified Code(s): I10 - Essential (primary) hypertension - Time Spent With Patient Total time spent is greater than 50% in coordination of care (as documented) at patient's floor/unit and/or counseling patient: 40 minutes Greater than 35 minutes
[2017-08-14] MEDS ORDERED: 0.9 % Sodium Chloride 250 ML ONE (21:10)
[2017-08-14 21:38] LABS: Hematocrit 22.6 % (35.3-44.9); Hemoglobin 7.2 g/dL (11.5-15.4)
[2017-08-15] MEDS: Insulin LISPRO 300 UNITS/3 ML VIAL SQ SCH ×4 (00:33→18:04)
[2017-08-15] MEDS: Pantoprazole 40 MG in 0.9 % Sodium Chloride Mini Bag 100 ML IVC SCH ×4 (00:34→18:08)
[2017-08-15] MEDS ORDERED: 0.9 % Sodium Chloride 250 ML ONE (01:32)
[2017-08-15 07:09] LABS: Basophils % 0.2 %; Eosinophils # 0.2 K/mcL (0.0-0.6); Eosinophils % 2.9 %; Hematocrit 26.2 % (35.3-44.9); Hemoglobin 8.4 g/dL (11.5-15.4); Immature Granulocytes % 0.2 % (0-4); Lymphocytes # 1.4 K/mcL (0.6-4.6); Lymphocytes % 26.7 %; Mean Corpuscular HGB Conc 32.1 g/dL (31.6-35.5); Mean Corpuscular Hemoglobin 28.7 pg (28.0-33.3); Mean Corpuscular Volume 89.4 fL (83.0-100.0); Mean Platelet Volume 10.6 fL (9.4-12.4); Monocytes # 0.4 K/mcL (0.0-1.3); Monocytes % 7.7 %; Neutrophils # 3.2 K/mcL (1.6-8.9); Platelet Count 214 K/mcL (140-400); Red Blood Count 2.93 M/mcL (3.82-4.97); Red Cell Distribution Width 13.7 % (11.5-14.5); Segmented Neutrophils % 62.3 %
[2017-08-15 07:15] LABS: INR 1.1; Prothrombin Time 12.1 Seconds (9.4-12.1)
[2017-08-15 07:30] LABS: Magnesium 2.4 mg/dL (1.6-2.6); Potassium 3.4 mEq/L (3.5-5.1)
[2017-08-15] MEDS ORDERED: Potassium Chloride Elixir 20 MEQ/15 ML UDC PO ONE (09:15)
[2017-08-15] MEDS ORDERED: Potassium Chloride 20 MEQ, Lidocaine 1% 2 ML in D5% in Water 250 ML IVPB ONE (10:35)
[2017-08-15 11:59] LABS: Hemoglobin 8.9 g/dL (11.5-15.4)
[2017-08-15] MEDS ORDERED: *HR* FentaNYL (PF) 100 MCG/2 ML VIAL ONE (13:08)
[2017-08-15] MEDS ORDERED: *HR* Midazolam HCl 5 MG/5 ML VIAL IVP ONE (13:09)
[2017-08-15] MEDS ORDERED: Ondansetron 4 MG/2 ML VIAL ONE (13:36)
[2017-08-15] MEDS ORDERED: Tetracaine/Benzocaine/Butamben 200MG/SPRAY (100SPY/BOT) MM ONE (13:39)
[2017-08-15] MEDS ORDERED: Ondansetron 4 MG/2 ML VIAL IVP PRN (13:39)
--- NOTE | 2017-08-15 14:59 | Internal Med Progress Note ---
Date of Encounter: 08/15/17 Time of Encounter: 09:40 - Assessment and plan (1) Syncope Current Visit: Yes Status: Acute Assessment and plan: Likely related to symptomatic anemia. Follow-up echocardiogram and bilateral carotid Doppler. Monitor vital signs closely. Continue telemetry monitoring. Serial troponins negative. Qualifiers: Syncope type: unspecified Qualified Code(s): R55 - Syncope and collapse (2) Anemia Current Visit: Yes Status: Acute Assessment and plan: Presented with hemoglobin of 7.2, improved to 8.9 status post 2 units PRBC transfusion. 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 Follow-up GI recommendations. Continue to keep nothing by mouth at this time. IV Protonix drip. Not on aspirin or anticoagulation at home. Qualifiers: Iron deficiency anemia type: chronic blood loss Qualified Code(s): D50.0 - Iron deficiency anemia secondary to blood loss (chronic) (3) Upper GI bleed Current Visit: Yes Status: Acute Assessment and plan: Recurrent. Plan as above. (4) Diabetes mellitus Current Visit: Yes Status: Chronic Assessment and plan: Blood sugars noted to be well controlled. Hold basal insulin for now. Continue Accu-Chek blood glucose monitoring with sliding scale insulin as needed. Currently nothing by mouth. 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 Hold hydrochlorothiazide and ARB given acute kidney injury. Qualifiers: Hypertension type: essential hypertension Qualified Code(s): I10 - Essential (primary) hypertension (6) DVT prophylaxis Current Visit: Yes Status: Acute (7) CKD (chronic kidney disease) Current Visit: Yes Status: Chronic Assessment and plan: Noted to have mild acute on chronic kidney disease. Baseline serum creatinine around 1.5, currently at 2.06. Hold ARB, diuretic. Monitor closely. Qualifiers: Chronic kidney disease stage: stage 3 (moderate) Qualified Code(s): N18.3 - Chronic kidney disease, stage 3 (moderate) (8) CAD (coronary artery disease) Current Visit: Yes Status: Chronic Qualifiers: Coronary Disease-Associated Artery/Lesion type: [place] artery [place] vs. transplanted heart: [place] heart Associated angina: without angina Qualified Code(s): I25.10 - Atherosclerotic heart disease of [place] coronary artery without angina pectoris - Time Spent With Patient Total time spent is greater than 50% in coordination of care (as documented) at patient's floor/unit and/or counseling patient: - Subjective Interval history: Improved dizziness and weakness. Reports melena, no hematochezia, nausea, vomiting or abdominal pain. - Constitutional Vitals: Temp Pulse Resp BP Pulse Ox 98.4 F 66 14 126/72 95 08/15/17 14:12 08/15/17 14:12 08/15/17 14:12 08/15/17 14:12 08/15/17 14:12 General appearance: Present: A&O X 3, answers questions appropriately - Respiratory Respiratory exam: Present: CTAB. Absent: accessory muscle use, rales, rhonchi, wheezes - Cardiovascular Cardiovascular exam: Present: RRR, +S1, +S2. Absent: diastolic murmur, gallop, rubs, systolic murmur - GI/Abdominal GI/Abdominal exam: Present: normal bowel sounds, soft, no peritoneal signs. Absent: distended, tenderness - Extremities Exam Extremities exam: Present: full ROM, warm, radial pulses palpable and symmetrical. Absent: calf tenderness, cyanotic, pedal edema - Neurological Exam Neurological exam: Present: CN II-XII intact, oriented X3, no focal deficits. Absent: pronater drift, facial droop, speech deficit Internal Medicine: Result - Labs CBC & Chem 7: 08/15/17 11:49 08/15/17 06:13 Labs: Short CBC 08/14/17 08/15/17 08/15/17 Range/Units 21:15 06:13 11:49 WBC 5.2 (4.3-11.1) K/mcL Hgb 7.2 L 8.4 L 8.9 L (11.5-15.4) g/dL Hct 22.6 L 26.2 L 27.0 L (35.3-44.9) % Plt Count 214 (140-400) K/mcL Neutrophils # 3.2 (1.6-8.9) K/mcL BMP 08/15/17 06:13 Sodium 140 Potassium 3.4 L Chloride 107 Carbon Dioxide 24 BUN 36 H Creatinine 2.06 H Glucose 94 Calcium 9.0 Cardiac Enzymes 08/14/17 Range/Units 21:15 Troponin I < 0.03 (< 0.04) ng/mL - ABG Interpretation ABG results: PT/INR, D-dimer PT 12.1 Seconds (9.4-12.1) 08/15/17 06:13 - Impressions Impressions Echocardiogram 08/15/17 20:18 Impressions: LVEF 60%. Mild left ventricular diastolic dysfunction. Normal right ventricular structure and function. Mild mitral regurgitation. No pulmonary hypertension. Left Ventricular Wall Motion: Rest Echo Findings All wall segments showed normal motion. Findings: Study Quality * Technically adequate exam. ECG Findings * Normal sinus rhythm. Left Ventricle * LVEF 60%. * Normal LV chamber size, wall thickness and function. * Mild left ventricular diastolic dysfunction. * No LVOTO. Right Ventricle * Normal right ventricular structure and function. Left Atrium * Mildly dilated left atrium. Right Atrium * Normal right atrial size. Mitral Valve * Normal mitral valve structure. * No mitral stenosis. * Mild mitral regurgitation. Aortic Valve * No aortic regurgitation. * Trileaflet aortic valve. * No aortic stenosis. Tricuspid Valve * Tricuspid valve not well visualized. * No tricuspid regurgitation. * Estimated RA pressure is 3 mmHg. * Estimated RVSP is 19 mmHg. * No pulmonary hypertension. Pulmonic Valve * Pulmonic valve is not well visualized. * No pulmonic stenosis. * No pulmonic regurgitation. Pulmonary Artery * Pulmonary artery not well visualized. Aorta * Normally sized aortic root. Pericardium * There is no pericardial effusion present. Interatrial Septum * No evidence of PFO by color Doppler. IVC * Normal IVC dimensions and inspiratory collapse. - VTE Documentation of Mechanical Device: Intermittent pneumatic compression device Consult Discharge Plan - Plan Referrals: Hayder Chandler DO [Primary Care Provider] - 08/24/17 1:00 pm
--- NOTE | 2017-08-15 15:59 | Gastroenterology Consult Note ---
Date of Encounter: 08/15/17 Time of Encounter: 10:15 - Assessment and plan (1) Upper GI bleed Current Visit: Yes Status: Acute Assessment and plan: Pt presents with tarry stools. 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 Will proceed with EGD today. (2) Severe anemia Current Visit: No Status: Acute Assessment and plan: Pt has been transfused and Hgb is improved. - Time Spent With Patient Total time spent is greater than 50% in coordination of care (as documented) at patient's floor/unit and/or counseling patient: GI History of Present Illness - Data of Consult Patient: new to practice Consult date: 08/15/17 Requesting Physician: Marcia Sepulveda MD - Consult Narrative Reason for consult: melena History of present illness: Ms. Pacheco is a 72 year old female present to ER for dizziness and syncope. Past medical history is significant for diabetes, hypertension, CAD status 3, history of GI bleed in last January. Patient has generalized weakness, increased the shortness of breath for about 1 week. Patient also noticed black stool in last week. Patient has nausea but no vomiting. Today around 1:30 PM patient has dizziness and syncope. Patient had hit her head during syncope. Patient denies tongue bite or urinary/fecal incontinence. Patient has intermittent chest pain which she said is chronic. Hemoglobin 7.5 and ER she was transfused 2 units packed red blood cells hemoglobin is 8.4 this morning. colonoscopy: 02/05 Annie three 5-20 mm polyps and diverticulosis EGD: 02/05 multiple bleeding angiodysplastic lesions in the stomach, multiple gastric polyps no nsaids or anticoagulants Past Med Surg Social Fam HX - Past Medical History Medical history: arthritis, diabetes, hyperlipidemia, hypertension, renal disease Additional medical history: anemia Psychiatric history: no psych history - Past Surgical History Surgical History: cataract, cholecystectomy, hysterectomy, orthopedic, other Additional surgical history: lumpectomy - egd - colonoscopy - Social History Smoking Status: Former smoker Smokeless Tobacco Status: No Alcohol use: none Drug use: none - Family History Son Adopted: No Family Member Ethnicity: Non- Living Status: Hx Family Cardiac Disorders: Yes Hx Family Respiratory Disorders: Yes Hx Family Cancer: Yes (HAD SKIN CA REMOVED RECENTLY) Hx Family GI Disorders: No Hx Family Endocrine Disorder: Yes Hx Family Neuromuscular Disorders: No Hx Family Neurologic Disorders: Yes Hx Family HEENT Disorders: No Hx Family Autoimmune Disorders: No Mother Adopted: No Family Member Ethnicity: Non- Living Status: Hx Family Cardiac Disorders: Yes Hx Family Respiratory Disorders: Yes Hx Family Cancer: Yes (HAD SKIN CA REMOVED RECENTLY) Hx Family GI Disorders: No Hx Family Endocrine Disorder: Yes Hx Family Neuromuscular Disorders: No Hx Family Neurologic Disorders: Yes Hx Family HEENT Disorders: No Hx Family Autoimmune Disorders: No Review of Systems: GI: as per [facility] GENERAL: denies fever or chills EYES: denies yellow discoloration ENT: denies pain with swallowing or difficulty swallowing CARDIO: denies chest pain, palpitations RESP: No Shortness of breath with exertion : denies change in color of urine NEURO: weakness HEME: Denies any bruising MS: chronic cliff and joint pain. DERM: denies rash or itching PSYCH: Denies history of anxiety or depression - Constitutional Vitals: Temp Pulse Resp BP Pulse Ox 98.4 F 63 17 114/55 98 08/15/17 15:20 08/15/17 15:20 08/15/17 15:20 08/15/17 15:20 08/15/17 15:20 Exam: CONSTITUTIONAL:~alert, no acute distress.~HEAD:~normocephalic.~EYES:~no jaundice.~NECK:~no obvious swelling.~HEART:~regular rate and rhythm, no murmurs. ~LUNGS:~bilateral good air entry.~ABDOMEN:~non distended, soft, generalized tenderness, .~RECTAL EXAM:~Deferred.~EXTREMITIES:~no clubbing, cyanosis or edema , trace BLE edema.~SKIN:~pallor noted, no stigmata of chronic liver disease.~ NEUROLOGIC:~no obvious focal defect.~~~~ Results - Labs CBC & Chem 7: 08/15/17 11:49 08/15/17 06:13 Labs: Last Result Calcium 9.0 mg/dL (8.6-10.3) 08/15/17 06:13 Troponin I < 0.03 ng/mL (< 0.04) 08/14/17 21:15 Entire Visit Hgb 8.9 g/dL (11.5-15.4) L 08/15/17 11:49 Hct 27.0 % (35.3-44.9) L 08/15/17 11:49 PT 12.1 Seconds (9.4-12.1) 08/15/17 06:13 Total Bilirubin 0.3 mg/dL (0.3-1.0) 08/14/17 15:36 AST 28 Units/L (13-39) 08/14/17 15:36 ALT 16 Units/L (7-52) 08/14/17 15:36 - ABG ABG results: PT/INR, D-dimer PT 12.1 Seconds (9.4-12.1) 08/15/17 06:13 - Impressions Impressions Echocardiogram 08/15/17 20:18 Impressions: LVEF 60%. Mild left ventricular diastolic dysfunction. Normal right ventricular structure and function. Mild mitral regurgitation. No pulmonary hypertension. Left Ventricular Wall Motion: Rest Echo Findings All wall segments showed normal motion. Findings: Study Quality * Technically adequate exam. ECG Findings * Normal sinus rhythm. Left Ventricle * LVEF 60%. * Normal LV chamber size, wall thickness and function. * Mild left ventricular diastolic dysfunction. * No LVOTO. Right Ventricle * Normal right ventricular structure and function. Left Atrium * Mildly dilated left atrium. Right Atrium * Normal right atrial size. Mitral Valve * Normal mitral valve structure. * No mitral stenosis. * Mild mitral regurgitation. Aortic Valve * No aortic regurgitation. * Trileaflet aortic valve. * No aortic stenosis. Tricuspid Valve * Tricuspid valve not well visualized. * No tricuspid regurgitation. * Estimated RA pressure is 3 mmHg. * Estimated RVSP is 19 mmHg. * No pulmonary hypertension. Pulmonic Valve * Pulmonic valve is not well visualized. * No pulmonic stenosis. * No pulmonic regurgitation. Pulmonary Artery * Pulmonary artery not well visualized. Aorta * Normally sized aortic root. Pericardium * There is no pericardial effusion present. Interatrial Septum * No evidence of PFO by color Doppler. IVC * Normal IVC dimensions and inspiratory collapse. Consult Discharge Plan - Plan Referrals: Hayder Chandler DO [Primary Care Provider] - 08/24/17 1:00 pm
--- NOTE | 2017-08-15 16:31 | Electrocardiograph Report ---
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
[2017-08-15 20:30] LABS: Hematocrit 24.7 % (35.3-44.9); Hemoglobin 8.3 g/dL (11.5-15.4)
[2017-08-15] MEDS: traZODone 50 MG TABLET PO SCH (21:41)
[2017-08-16] MEDS: Pantoprazole 40 MG in 0.9 % Sodium Chloride Mini Bag 100 ML IVC SCH ×3 (01:13→16:00)
[2017-08-16] MEDS: Insulin LISPRO 300 UNITS/3 ML VIAL SQ SCH ×4 (01:17→16:34)
[2017-08-16 05:25] LABS: Basophils % 0.2 %; Eosinophils # 0.2 K/mcL (0.0-0.6); Eosinophils % 5.3 %; Hematocrit 26.6 % (35.3-44.9); Hemoglobin 8.4 g/dL (11.5-15.4); Immature Granulocytes % 0.2 % (0-4); Lymphocytes # 1.2 K/mcL (0.6-4.6); Lymphocytes % 26.3 %; Mean Corpuscular HGB Conc 31.6 g/dL (31.6-35.5); Mean Corpuscular Hemoglobin 29.4 pg (28.0-33.3); Mean Platelet Volume 10.4 fL (9.4-12.4); Monocytes # 0.4 K/mcL (0.0-1.3); Monocytes % 8.6 %; Neutrophils # 2.7 K/mcL (1.6-8.9); Platelet Count 196 K/mcL (140-400); Red Blood Count 2.86 M/mcL (3.82-4.97); Red Cell Distribution Width 13.6 % (11.5-14.5); Segmented Neutrophils % 59.4 %
[2017-08-16 05:46] LABS: Calcium 8.7 mg/dL (8.6-10.3); Magnesium 2.2 mg/dL (1.6-2.6); Potassium 3.7 mEq/L (3.5-5.1)
--- NOTE | 2017-08-16 16:40 | Internal Med Progress Note ---
Date of Encounter: 08/16/17 Time of Encounter: 12:00 - Assessment and plan (1) Syncope Current Visit: Yes Status: Acute Assessment and plan: Likely related to symptomatic anemia. Bilateral carotid Doppler with no acute abnormality, nonstenotic plaque on the left. Echocardiogram shows preserved ejection fraction, mild LV diastolic dysfunction. Monitor vital signs closely. Continue telemetry monitoring. Serial troponins negative. Qualifiers: Syncope type: unspecified Qualified Code(s): R55 - Syncope and collapse (2) Anemia Current Visit: Yes Status: Acute Assessment and plan: Presented with hemoglobin of 7.2, currently stable, at around 8.4, status post 2 units PRBC transfusion. 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 Continue oral PPI and sucralfate. Qualifiers: Iron deficiency anemia type: chronic blood loss Qualified Code(s): D50.0 - Iron deficiency anemia secondary to blood loss (chronic) (3) Upper GI bleed Current Visit: Yes Status: Acute Assessment and plan: Recurrent. Plan as above. (4) Diabetes mellitus Current Visit: Yes Status: Chronic Assessment and plan: Blood sugars noted to be well controlled. Hold basal insulin for now. Continue Accu-Chek blood glucose monitoring with sliding scale insulin as needed. Full liquid diet as tolerated. Qualifiers: Diabetes mellitus type: type 2 Diabetes mellitus residential insulin use: with residential use Diabetes mellitus complication status: with kidney complications Diabetes mellitus complication detail: with chronic kidney disease Chronic kidney disease stage: stage 3 (moderate) Qualified Code(s): E11.22 - Type 2 diabetes mellitus with diabetic chronic kidney disease; N18.3 - Chronic kidney disease, stage 3 (moderate); Z79.4 - [facility] (current) use of insulin (5) Hypertension Current Visit: Yes Status: Chronic Qualifiers: Hypertension type: essential hypertension Qualified Code(s): I10 - Essential (primary) hypertension (6) DVT prophylaxis Current Visit: Yes Status: Acute (7) CKD (chronic kidney disease) Current Visit: Yes Status: Chronic Assessment and plan: Noted to have mild acute on chronic kidney disease. Baseline serum creatinine around 1.5, stable now at 2.02. Hold ARB, diuretic. Monitor closely. Qualifiers: Chronic kidney disease stage: stage 3 (moderate) Qualified Code(s): N18.3 - Chronic kidney disease, stage 3 (moderate) (8) CAD (coronary artery disease) Current Visit: Yes Status: Chronic Qualifiers: Coronary Disease-Associated Artery/Lesion type: [place] artery [place] vs. transplanted heart: [place] heart Associated angina: without angina Qualified Code(s): I25.10 - Atherosclerotic heart disease of [place] coronary artery without angina pectoris - Time Spent With Patient Total time spent is greater than 50% in coordination of care (as documented) at patient's floor/unit and/or counseling patient: - Subjective Interval history: Feels better; no nausea, vomiting, diarrhea, abdominal pain; had EGD yesterday with cauterization of vascular ectasias in stomach; - Constitutional Vitals: Temp Pulse Resp BP Pulse Ox 99.1 F 61 17 105/47 94 08/16/17 16:13 08/16/17 16:13 08/16/17 16:13 08/16/17 16:13 08/16/17 16:13 General appearance: Present: A&O X 3, answers questions appropriately - Respiratory Respiratory exam: Present: CTAB. Absent: accessory muscle use, rales, rhonchi, wheezes - Cardiovascular Cardiovascular exam: Present: RRR, +S1, +S2. Absent: diastolic murmur, gallop, rubs, systolic murmur - GI/Abdominal GI/Abdominal exam: Present: normal bowel sounds, soft, no peritoneal signs. Absent: distended, tenderness - Extremities Exam Extremities exam: Present: full ROM, warm, radial pulses palpable and symmetrical. Absent: calf tenderness, cyanotic, pedal edema Internal Medicine: Result - Labs CBC & Chem 7: 08/16/17 04:31 08/16/17 04:31 Labs: Short CBC 08/15/17 08/16/17 Range/Units 20:23 04:31 WBC 4.6 (4.3-11.1) K/mcL Hgb 8.3 L 8.4 L (11.5-15.4) g/dL Hct 24.7 L 26.6 L (35.3-44.9) % Plt Count 196 (140-400) K/mcL Neutrophils # 2.7 (1.6-8.9) K/mcL BMP 08/16/17 04:31 Sodium 140 Potassium 3.7 Chloride 108 H Carbon Dioxide 25 BUN 27 H Creatinine 2.02 H Glucose 106 H Calcium 8.7 - ABG Interpretation ABG results: PT/INR, D-dimer PT 12.1 Seconds (9.4-12.1) 08/15/17 06:13 - VTE Documentation of Mechanical Device: Intermittent pneumatic compression device Consult Discharge Plan - Plan Referrals: Hayder Chandler DO [Primary Care Provider] - 08/24/17 1:00 pm
[2017-08-16] MEDS: Sucralfate 1 GM TABLET PO SCH (21:45)
[2017-08-16] MEDS: traZODone 50 MG TABLET PO SCH (21:46)
[2017-08-16] MEDS ORDERED: Acetaminophen 325 MG TABLET PO PRN (22:30)
[2017-08-17] MEDS: Insulin LISPRO 300 UNITS/3 ML VIAL SQ SCH ×2 (00:25→07:20)
[2017-08-17 06:58] LABS: Basophils % 0.2 %; Eosinophils # 0.2 K/mcL (0.0-0.6); Eosinophils % 4.5 %; Hematocrit 26.8 % (35.3-44.9); Hemoglobin 8.4 g/dL (11.5-15.4); Immature Granulocytes % 0.2 % (0-4); Lymphocytes # 1.1 K/mcL (0.6-4.6); Lymphocytes % 22.4 %; Mean Corpuscular HGB Conc 31.3 g/dL (31.6-35.5); Mean Corpuscular Hemoglobin 28.7 pg (28.0-33.3); Mean Corpuscular Volume 91.5 fL (83.0-100.0); Mean Platelet Volume 10.9 fL (9.4-12.4); Monocytes # 0.4 K/mcL (0.0-1.3); Monocytes % 8.1 %; Platelet Count 194 K/mcL (140-400); Red Blood Count 2.93 M/mcL (3.82-4.97); Red Cell Distribution Width 13.4 % (11.5-14.5); Segmented Neutrophils % 64.6 %
[2017-08-17 07:03] LABS: Potassium 3.7 mEq/L (3.5-5.1)
[2017-08-17] MEDS: Sucralfate 1 GM TABLET PO SCH (08:46)
[2017-08-17 11:31] VITALS: BP 108/61
--- NOTE | 2017-08-17 14:28 | Discharge Summary ---
- NOTES TO OUTPATIENT PROVIDER Notes to Outpatient Provider: anemia and upper GI bleed, s/p APC of vascular ectasias in stomach; on PPI and Sucralfate; held diuretic and ARB due to low BP and elevated creatinine; Orders not resulted at time of discharge: Pending orders 08/14/17 20:19 Occult Blood,Stool [BF] Stat Date of Encounter: 08/17/17 Time of Encounter: 14:26 - Discharge Diagnosis (1) Syncope Priority: Primary Status: Acute Qualifiers: Syncope type: unspecified Qualified Code(s): R55 - Syncope and collapse (2) Anemia Priority: Primary Status: Acute Qualifiers: Anemia type: iron deficiency [place] deficiency anemia type: chronic blood loss Qualified Code(s): D50.0 - Iron deficiency anemia secondary to blood loss (chronic) (3) Upper GI bleed Priority: Primary Status: Acute (4) Diabetes mellitus Priority: Secondary Status: Chronic Qualifiers: Diabetes mellitus type: type 2 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 Diabetes mellitus complication status: with kidney complications Diabetes mellitus complication detail: with chronic kidney disease Chronic kidney disease stage: stage 3 (moderate) Qualified Code(s): E11.22 - Type 2 diabetes mellitus with diabetic chronic kidney disease; N18.3 - Chronic kidney disease, stage 3 (moderate); Z79.4 - long term care administrator (current) use of insulin (5) Hypertension Priority: Secondary Status: Chronic Qualifiers: Hypertension type: essential hypertension Qualified Code(s): I10 - Essential (primary) hypertension (6) CKD (chronic kidney disease) Priority: Secondary Status: Chronic Qualifiers: Chronic kidney disease stage: stage 3 (moderate) Qualified Code(s): N18.3 - Chronic kidney disease, stage 3 (moderate) (7) CAD (coronary artery disease) Priority: Secondary Status: Chronic Qualifiers: Coronary Disease-Associated Artery/Lesion type: [place] artery [place] vs. transplanted heart: [place] heart Associated angina: without angina Qualified Code(s): I25.10 - Atherosclerotic heart disease of [place] coronary artery without angina pectoris Hospital course: Ms. Pacheco is a 72 year old female with the above medical problems who was admitted with syncope and weakness. She was noted to have melena and acute on chronic anemia, hemoglobin improved with 2 units PRBC transfusion. She does have history of bleeding vascular ectasia since stopped. She was started on bowel rest, IV Protonix drip and IV hydration. GI was consulted and patient underwent EGD, which showed mild esophagitis, chronic gastritis and bleeding vascular ectasias in stomach status post APC. Hemoglobin remained stable after the procedure and she is currently able to tolerate oral diet. She is encouraged to follow bland diet and to avoid excess caffeine, aspirin, NSAIDs, anticoagulants. She also is noted to have mild elevation in her serum creatinine from her baseline, diuretic and ARB are being held at this time. She is noted to be normotensive and these medications may be resumed after PCP follow-up. She is medically stable for discharge with outpatient GI follow-up for possible outpatient colonoscopy. Discharge discussed with: patient, family, nurse - Time Spent with Patient Total time spent providing and/or coordinating discharge services: Greater than 30 minutes (45 min) - Discharge Medications Home Medications: Citalopram Hydrobromide [Citalopram HBr] 40 mg PO DAILY 08/14/17 [History] Insulin Degludec [Tresiba Flextouch U-200] 40 units SQ QAM 08/14/17 [History] Multivitamin [One Daily Essential] 1 tab PO DAILY 08/14/17 [History] Omeprazole [PriLOSEC] 20 mg PO BID 08/14/17 [History] Simvastatin [Zocor] 40 mg PO HS 08/14/17 [History] Sucralfate [Carafate] 1 gm PO BID 08/14/17 [History] traZODone [TraZODone] 50 mg PO HS 08/14/17 [History] Allergies/Adverse Reactions: 3 Allergy/AdvReac Type Severity Reaction Status Date / Time Sulfa (Sulfonamide Allergy Swelling Verified 08/14/17 18:06 Antibiotics) of Lip/Tongue/Throat codeine AdvReac Rash Verified 08/14/17 18:06 Penicillins [PCN] AdvReac Rash Verified 08/14/17 18:06 Date of admission: 08/14/17 20:14 Primary care physician: Hayder Chandler DO Discharging clinician: Marcia Sepulveda Anticipated date of discharge: 08/17/17 - Constitutional Vitals: Temp Pulse Resp BP Pulse Ox 98.3 F 61 15 108/61 92 08/17/17 11:29 08/17/17 11:29 08/17/17 11:29 08/17/17 11:29 08/17/17 11:29 General appearance: Present: A&O X 3, answers questions appropriately - Cardiovascular Cardiovascular exam: Present: RRR, +S1, +S2. Absent: diastolic murmur, gallop, rubs, systolic murmur - Patient Status Disposition: Home, Self-Care Condition: Good Functional capacity at discharge: independent ambulation Overall status at discharge: patient is progressing back to baseline - Discharge Instructions Follow Up With: Hayder Chandler DO [Primary Care Provider] - 08/24/17 1:00 pm Additional Instructions: F/up with GI for outpatient colonoscopy; - Diet and Activity Activity: resume usual activities as tolerated Diet: diabetic diet, low fat, low cholesterol, low salt diet, other (avoid excess caffeine, spicy food, no ASA/NSAIDs/anticoagulants) - VTE Documentation of Mechanical Device: Intermittent pneumatic compression device
== END 2017-08-17 16:02 | disposition home or self-care (01) | DRG 378 ==
LOC: EMEROO 15:31 → 3BNU 15:31 → SUATTDRO 20:14
PROVIDERS: ADMIT Pediatrics; ATTEND Internal Medicine